=== PATIENT | male | born 1945 | race Caucasian/White ===

== ENCOUNTER → 2021-07-14 12:20 | Outpatient (CLI) | payer MEDICARE, SELFPAY | PROVIDERS: PCP Legal Medicine; Referring Provider Student in an Organized Health Care Education/Training Program; Visit Provider Student in an Organized Health Care Education/Training Program | DX: Z00.00 Encounter for general adult medical examination without abnormal findings (principal) | CPT/HCPCS: C9803 ==

== ENCOUNTER 2021-07-19 17:36 | Emergency (ER) | payer MEDICARE, SELFPAY ==
[2021-07-19] VITALS (7 sets, daily range): BP systolic 124–140; BP diastolic 70–78; PULSE 62–90; RESP 16–20; TEMP 36.1; O2SAT 89–96; BMI 19.6
--- NOTE | 2021-07-19 17:55 | EKG12_ITS ---
Test Reason : SOB Blood Pressure : / mmHG Vent. Rate : 067 BPM Atrial Rate : 067 BPM P-R Int : 170 ms QRS Dur : 084 ms QT Int : 384 ms P-R-T Axes : 062 -08 065 degrees QTc Int : 405 ms Normal sinus rhythm Normal ECG Confirmed by JEFF MARTINS, SHRAVAN ([id number]), online editor GORAN COLLINS ([id number]) on 07/21/2021 9:11:49 AM Referred By: BRITTNEE/ALLEY Confirmed By:SHRAVAN AGUILAR MD
--- NOTE | 2021-07-19 17:56 | EDS_ITS ---
HPI History of Present Illness Chief Complaint: Shortness of Breath Detail of Chief Complaint: Shortness of breath with low pulse ox Informant: patient and family Associated Symptoms cough Narrative Narrative: Patient presents to the emergency department chief complaint of shortness of breath and low pulse ox today. Patient tested positive for COVID- 19 5 days ago. 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 He has been getting radiation treatments to his brain. Patient first developed symptoms of Covid 8 days ago. Patient's daughter states that his oxygen levels at home have been as low as 80% on room air. Patient denies any chest pain. He does have some generalized weakness. Patient has not had a fever recently. He does have an occasional cough. [facility] Medical History (Updated 07/19/21 @ 19:[address] Chon Vyas DO) Brain metastasis Prostate cancer Home Medications dexamethasone 2 mg tablet 2 mg PO BID 07/04/21 [History Last Taken Unknown] metformin 500 mg tablet 500 mg PO BID 07/04/21 [History Last Taken Unknown] tamsulosin 0.4 mg capsule 0.4 mg PO DAILY 07/04/21 [History Last Taken Unknown] memantine 5 mg tablet 5 mg PO BID #105 tab 07/09/21 [Rx Last Taken Unknown] dexamethasone 6 mg PO DAILY #7 tab 07/19/21 [Rx Last Taken Unknown] Allergy/AdvReac Type Severity Reaction Status Date / Time isopropyl alcohol Allergy Mild Other Verified 07/19/21 17:40 Family History Mother Breast cancer Father Cancer lymphoma Surgical History Hx of tonsillectomy Social History (Updated 07/04/21 @ 10:33 by Bonnie Pritchett RN) adopted: No household members: spouse current occupational status: retired Smoking Status: Never smoker alcohol intake: never substance use type: does not use ROS ROS ED Constitutional Constitutional ED: Reports systems reviewed and no addt'l complaints, except as documented; Denies body ache(s), change in weight or chills Eyes Eyes: Denies acute decrease in peripheral vision, change in vision, double vision or loss of vision ENT ENT ED: Reports none; Denies ear pain, lip swelling, loss taste/smell, neck pain, otalgia or sore throat Cardiovascular Cardiovascular: Reports none; Denies abdominal pain, chest pain with activity, leg edema, lightheadedness, palpitations, rapid heart rate or syncope Respiratory/Chest Respiratory/Chest: Reports none, cough and dyspnea; Denies change in mental status, dry cough, hemoptysis, shortness of breath at rest or shortness of b reath with exertion Gastrointestinal Gastrointestinal: Reports none; Denies abdominal pain, change in stool character, diarrhea, hematemesis, hematochezia, melena, rectal bleeding or vomiting Genitourinary Genitourinary ED: Reports none; Denies abdominal discomfort, anuria, dysuria, genital pain or polyuria Musculoskeletal Musculoskeletal: Reports none; Denies arthralgias, back pain, difficulty walking, extremity pain, muscle weakness or myalgias Integumentary Reports none; Denies abscess or rash Neurologic Neurologic: Reports none and weakness; Denies abnormal gait, confusion, focal weakness, frequent falls, headache(s), loss of vision, numbness, paresthesias, radicular pain or vertigo Psychiatric Psychiatric: Reports systems reviewed and no addt'l complaints, except as documented and none; Denies behavioral changes, confusion, difficulty concentrating, hallucinations, suicidal ideation, tactile hallucinations or visual hallucinations Endocrine Endocrinology: Denies none, cold intolerance, excessive sweating, fatigue or heat intolerance Hematologic/Lymphatic Hematologic/Lymphatic: Reports none; Denies anemia, easy bleeding or easy bruising Allergic/Immunologic Allergic/Immunologic ED: Denies as per HPI, none, lip swelling, mouth swelling, throat swelling, tongue swelling or hives EXAM Physical Exam Const Vital Signs: 07/19/21 17:37 07/19/21 17:49 07/19/21 18:40 Temperature 97.0 F L Temperature Source Temporal Pulse Rate 81 76 Respiratory Rate 16 Respiratory Effort Non-Labored Short of Breath Respiratory Depth Normal Blood Pressure 124/70 H 126/73 H Blood Pressure Mean 88 90 Pulse Ox 93 92 89 Oxygen Delivery Method Room Air Room Air Room Air Oxygen Flow Rate (L/min) 07/19/21 18:42 07/19/21 19:56 07/19/21 20:26 Temperature 97.0 F L Temperature Source Temporal Pulse Rate 62 90 Respiratory Rate 20 H Respiratory Effort Respiratory Depth Blood Pressure 127/76 H 140/78 H Blood Pressure Mean 93 98 Pulse Ox 93 96 Oxygen Delivery Method Nasal Cannula Nasal Cannula Oxygen Flow Rate (L/min) 2 2 Positive well nourished and well developed General Appearance ED: well developed and NAD HEENT Reports TM's clear and moist mucous membranes normocephalic and atraumatic; Negative for trauma or tenderness Tympanic Membrane ED: Yes TM's clear Eyes PERRL and EOMs intact bilaterally General Eye ED: Negative for pale conjunctiva or scleral icterus Neck no lymphadenopathy, supple and no JVD General: Negative for tenderness Chest Wall inspection of chest normal and palpation of chest normal Chest: Negative for tenderness Resp normal respiratory effort and clear to auscultation bilaterally Effort and Inspection: Negative for respiratory distress or pain with movement Auscultation: Negative for rhonchi, wheezes or diminished lung sounds Cardio regular rate, regular rhythm, S1 normal heart sound, S2 normal heart sound and no murmurs Peripheral Pulses: pulses 2+ throughout GI normal to inspection, nondistended, normoactive bowel sounds, soft to palpation, non-tender, non-distended and no masses Back/Spine no CVA tenderness and no thoracic nor lumbar tenderness Extremity normal to inspection General Extremety ED: Negative for edema General Extremity: Negative for edema Neuro oriented x3, CN's II-XII intact bilaterally, no sensory deficits noted and gait normal Sensorium / Orientation: awake, alert, oriented to person, oriented to place and oriented to time Motor Exam: strength 5/5 throughout and strength abnormal Psych mental status grossly normal Skin no rashes or lesions noted and no wounds MDM MDM MDM Narrative Medical decision making narrative: IV line established on arrival. With ambulation patient oxygen dropped to 85%. Patient placed on 2 L nasal cannula O2. D-dimer was elevated therefore CT of the chest was ordered and results will be pending. Patient was seen by hospitalist who stated that patient wants to go home on oxygen and does not want to be admitted at this time. Patient already on Decadron at home and he is to continue with that. Patient will be set up for outpatient oxygen. Patient advised to return if worsening shortness of breath or conditions worsen anyway. Lab Data Attestation: I reviewed the patient's lab results. Labs: Laboratory Results - last 24 hr 07/19/21 07/19/21 07/19/21 18:42 18:42 18:42 WBC 7.0 RBC 3.71 L Hgb 11.9 L Hct 35.6 L MCV 96.0 H MCH 32.1 H MCHC 33.4 RDW Std Deviation 48.8 H RDW Coeff of Kendra 13.9 Plt Count 144 L MPV 9.2 Immature Gran % (Auto) 1.400 H Neut % (Auto) 93.6 H Lymph % (Auto) 3.[address] [place] % (Auto) 1.7 Eos % (Auto) 0.0 Baso % (Auto) 0.1 Absolute Neuts (auto) 6.5 Absolute Lymphs (auto) 0.22 L Nucleated RBC % 0 Differential Comment SCANNED D-Dimer Quant (PE/DVT) 1.28 H* Sodium 133 L Potassium 4.1 Chloride 101 Carbon Dioxide 23.0 Anion Gap 9 BUN 26 H Creatinine 0.70 Estim Creat Clear Calc 60.29 Est GFR (MDRD) Af Amer 141 Est GFR (MDRD) Non-Af 117 BUN/Creatinine Ratio 37.0 H Glucose 184 H Lactic Acid Calcium 8.4 L Troponin I High Sens 4 07/19/21 18:47 WBC RBC Hgb Hct MCV MCH MCHC RDW Std Deviation RDW Coeff of Kendra Plt Count MPV Immature Gran % (Auto) Neut % (Auto) Lymph % (Auto) [place] % (Auto) Eos % (Auto) Baso % (Auto) Absolute Neuts (auto) Absolute Lymphs (auto) Nucleated RBC % Differential Comment D-Dimer Quant (PE/DVT) Sodium Potassium Chloride Carbon Dioxide Anion Gap BUN Creatinine Estim Creat Clear Calc Est GFR (MDRD) Af Amer Est GFR (MDRD) Non-Af BUN/Creatinine Ratio Glucose Lactic Acid 2.5 H* Calcium Troponin I High Sens Radiography Chest X-Ray - ED: 1 View Diagnostic Testing: Clinical Impression(s) from Imaging Studies Chest X-Ray 07/19/21 18:55 IMPRESSION: Probable scarring of the right lateral lung. Possible early infiltrate/pneumonia in the right lung base. Electronically Signed: Robert Mcgill MD (Brooks) at 19:13 EST , Service support , Chest CTA 07/19/21 19:12 IMPRESSION: 1. No central or segmental pulmonary embolism. 2. Multilobar interstitial and groundglass opacities along the periphery with features commonly reported with COVID pneumonia. Electronically Signed: Robert Mcgill MD (Brooks) at 20:10 EST , Service support , One view chest x-ray obtained interpreted by myself as scarring of the right lung otherwise no acute disease process. Radiology in agreement although they thought there might be possible early infiltrate/pneumonia in the right lung base. EKG Initial EKG: Attestation: I personally reviewed and interpreted this EKG as follows: Comments: Sinus rhythm with a ventricular rate of 67 bpm with no acute ST segment changes. Discharge Plan Triage Chief Complaint: Shortness of Breath ED Provider: Chon Vyas Dx/Rx/DC Orders Clinical Impression: COVID-19, Hypoxemia Instructions: ED Dyspnea, Caring for Someone Who Has COVID-19 Prescriptions: New dexamethasone 6 mg tablet 6 mg PO DAILY Qty: 7 RF: 0 No Action metformin 500 mg tablet 500 mg PO BID RF: 0 tamsulosin [Flomax] 0.4 mg capsule 0.4 mg PO DAILY RF: 0 dexamethasone 2 mg tablet 2 mg PO BID RF: 0 memantine 5 mg tablet 5 mg PO BID Qty: 105 RF: 4 Primary Care Provider: Martell Klein Referrals: Martell Klein MD [Primary Care Provider] - Disposition Disposition: Home, Self Care
[2021-07-19] MEDS: dexAMETHasone 4 MG Tablet 6 MG PO (18:40)
[2021-07-19] MEDS: 0.9% Normal Saline 1,000 ML 150 ML IV (18:50)
[2021-07-19 18:54] LABS: Absolute Lymphocyte Count 0.22 X10^3/uL (0.83-4.51); Absolute Neutrophil Count 6.5 X10^3/uL (2.0-7.7); Basophil# 0.01 X10^3/uL; Basophil% 0.1 % (0-1); Hematocrit 35.6 % (40-54); Hemoglobin 11.9 g/dL (13.0-16.5); Lymphocyte # 0.22 X10^3/ul (0.83-4.51); Lymphocyte % 3.2 % (19-41); Mean Corp Hgb Conc 33.4 g/dL (32-36); Mean Corpuscular Hgb 32.1 pg (27.0-32.0); Mean Platelet Vol. 9.2 fl (6.2-12.0); Monocyte# 0.12 X10^3/uL; Monocyte% 1.7 % (0-10); NRBC Flagged by Analyzer 0 % (0-5); Neutrophil % 93.6 % (47-70); POSITIVE DIFFERENTIAL YES; Platelet Count 144 K/mm3 (150-450); RBC Distribution Width CV 13.9 % (11.6-14.6); RBC Distribution Width SD 48.8 fl (35.1-43.9); Red Blood Count 3.71 M/mm3 (4.6-6.2)
--- NOTE | 2021-07-19 18:55 | RAD_ITS ---
STUDY: X-RAY CHEST REASON FOR EXAM: Male, 75 years old. dyspnea TECHNIQUE: AP COMPARISON: PET scan 07/08/2021 FINDINGS: Right chest port is stable. The lungs are hyperexpanded. Linear dominant opacity along the lateral right lung with amorphous opacity in the right lung base. There is no demonstrated pleural abnormality. Normal size heart. Normal mediastinum and bienvenido. Normal visualized pulmonary arteries. There is atherosclerotic tortuosity of the aortic arch and descending thoracic aorta. There is demineralization of the osseous structures. Normal visualized ribs, clavicles, and shoulders. There is no demonstrated abnormality of the visualized soft tissue structures of the upper abdomen. RAD/Chest 1 View (Portable) IMPRESSION: Probable scarring of the right lateral lung. Possible early infiltrate/pneumonia in the right lung base. Electronically Signed: Robert Mgcill MD (Brooks) at 19:13 EST , Service support ,
[2021-07-19 18:58] LABS: Differential Indicated SCAN CRITERIA MET
[2021-07-19 19:11] LABS: D-Dimer Quantitative (DVT/PE) 1.28 FEU/ug/m (0.27-0.49)
--- NOTE | 2021-07-19 19:12 | CT_ITS ---
STUDY: CTA CHEST REASON FOR EXAM: Male, 75 years old. Shortness of breath increasing with exertion RADIATION DOSAGE (If Supplied By Facility): CTDIvol = ( 6.46 ) mGy, DLP = ( 212.42 ) mGycm TECHNIQUE: The examination was performed with the intravenous administration of IV 75mL Isovue-370. Post-processing of the angiographic images was performed, with multiplanar reformation and 3D reconstruction. Individualized dose optimization techniques were used for this CT. COMPARISON: None. FINDINGS: Normal enhancement of the main pulmonary artery and right and left pulmonary arteries. Normal enhancement of the bilateral peripheral pulmonary arteries. There is no demonstrated pulmonary embolism. Normal thoracic aorta and visualized great vessels. There is no demonstrated aortic dissection. Normal heart and pericardium. Normal mediastinum. Normal hilar regions. Normal visualized trachea and bronchi. The lungs are hyper expanded, with flattening of the hemidiaphragms. There are central emphysematous blebs in the bilateral lungs. Multilobar interstitial and groundglass opacities along the periphery with features commonly reported with COVID pneumonia. Normal pleura. Normal chest wall structures. There are degenerative changes of thoracic spine. Peripheral enhancing lesions of the liver likely represent hemangiomata. Probable simple cyst of the left hepatic lobe. No required imaging follow-up needed given high likelihood of benign nature. Granulomatous calcifications of the spleen. Multiple punctate calculi of the left kidney without sara hydronephrosis, although some parapelvic cysts are seen simulating hydronephrosis. Gallstones are noted. CT/CTA Chest W/WO Contrast IMPRESSION: 1. No central or segmental pulmonary embolism. 2. Multilobar interstitial and groundglass opacities along the periphery with features commonly reported with COVID pneumonia. Electronically Signed: Robert Mcgill MD ([place]) at 20:10 EST , Service support ,
[2021-07-19 19:18] LABS: Differential Comment SCANNED
[2021-07-19 19:30] LABS: Anion Gap 9 (5-15); BUN 26 mg/dL (7-18); Calcium,Total 8.4 mg/dL (8.5-10.1); Chloride 101 mmol/L (98-107); EST Glomerular Filtration Rate 117 mL/min (>60); Est Glom Filt Rate - Afr Amer 141 mL/min (>60); Estimated Creatinine Clearance 60.29 ml/min; Glucose 184 mg/dL (74-106); Potassium 4.1 mmol/L (3.5-5.1); Sodium Level 133 mmol/L (136-145); Troponin-I HS 4 pg/mL (3.0-78.0)
[2021-07-19 19:52] LABS: Lactic Acid 2.5 mmol/L (0.4-1.9)
--- NOTE | 2021-07-19 20:40 | CM.ED ---
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 VERO confirmed with MD that patient needs 2L of oxygen at discharge. VERO called [employer] and spoke to Evelina and made referral. VERO faxed referral to [facility]. VERO received call from [employer] rep, who indicated he will call the patient's sister in law, who patient is living with while receiving cancer treatments. VERO spoke to patient's sister in law, Jacoby Chavez, who stated patient is in [place] staying with her for undetermined amount of time at least a couple more weeks. Patient is receiving radiation from [facility] and has 2 more treatment to go. VERO updated DAIN that [employer] will call her to schedule time to come to the house to set up home oxygen. DAIN voiced understanding. Patient was discharged home to sister in law. [email or web address] email sent. VERO received confirmation email from [employer] Plan: Home with Home oxygen Pricilla CHAVES
[2021-07-19 22:12] LABS: Reflex Lactate? N
--- NOTE | 2021-07-20 22:34 | ED.RN ---
Preliminary blood culture result was gram stain positive cocci on 1 bottle drawn from his port. Dr. Boswell aware and stated it's probably skin staph, wait for final result.
--- NOTE | 2021-07-21 12:08 | CASEMGMT ---
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 Contacted pt's [id number] Tere who pt is staying with. She reports pt to be improving and that he was able to walk short distances yesterday without his PO dropping. Tere noted pt to be scheduled at the end of the day today for radiation tx and inquired as to if this was still ok. This RN CM attempted to contact radiation tx and voicemail message left requesting a return call to discuss and follow-up with [id number]. Tere denied any other questions or concerns. Anahi Vivar RN CM
== END 2021-07-19 21:11 | disposition home or self-care (01) ==
PROVIDERS: Emergency Provider Emergency Medicine; PCP Legal Medicine
DX: U07.1 COVID-19 (principal); R09.02 Hypoxemia; C61 Malignant neoplasm of prostate; C79.31 Secondary malignant neoplasm of brain; Z79.84 Long term (current) use of oral hypoglycemic drugs; Z79.52 Long term (current) use of systemic steroids; Z79.899 Other long term (current) drug therapy
CPT/HCPCS: 36591; 71045; 71275; 80048; 83605; 84484; 85025; 85379; 87040; 87149; 87186; 93005; 99285; J7030; Q9967; A4216

== ENCOUNTER 2021-07-23 15:03 | Emergency (ER) | payer OTHER, SELFPAY ==
[2021-07-23 15:05] VITALS: BP 192/77; PULSE 76; RESP 17; TEMP 37.3; O2SAT 94; BMI 19.6
--- NOTE | 2021-07-23 15:41 | CT_ITS ---
HISTORY: seizure w/ brain mets TECHNIQUE: Multiple axial images were obtained of the brain without intravenous contrast. A radiation dose optimization technique was used for this scan. IV Contrast dosage and agent: None. COMPARISON: PET/CT 07/08/21 FINDINGS: # of images incl. paperwork: 251 PARANASAL SINUSES AND MASTOID AIR CELLS: Maxillary and sphenoid sinusitis with sphenoid fluid level. INTRACRANIAL HEMORRHAGE: None. BRAIN PARENCHYMA: No CT evidence of stroke. High attenuation foci at the terrell-white interface at the right frontal lobe and right thalamus at the level of the frontal horns, largest 6 mm. These lesions are visible on the CT portion of the preceding PET/CT examination. Additional smaller foci in the high right frontal and left parietal convexity right external capsule. There is preservation of the terrell/white matter interface. Posterior fossa structures are unremarkable. There is hypoattenuation of the periventricular white matter. Chronic involutional changes are noted. CSF SPACES: Appropriate for age. There is no hydrocephalus. MASS EFFECT: None. CALVARIUM: No acute fracture. CT/Brain/Head without Contrast IMPRESSION: Findings highly suspicious for intracranial metastasis with the largest focus in the right frontal lobe at the terrell-white junction. Chronic involutional and white matter changes. Possible acute sphenoid sinusitis. Individualized dose optimization techniques were used for this CT. at 1639 Reported and signed by: Rodriguez Soriano MD Electronically Signed: Rodriguez Soriano MD at 16:38 EST Tel , Service support ,
--- NOTE | 2021-07-23 15:46 | EDS_ITS ---
HPI History of Present Illness Chief Complaint: Seizure Informant: patient and family Onset/Context/Timing Onset: Today and Hours Context: Sudden Onset Timing: Intermittent Current Severity: Gone Maximum Severity: Moderate Narrative Narrative: 75-year-old male with known history of prostate CA with bone, liver and brain mets. He underwent chemotherapy I believe in the summer. He is also done recently and finished his 10 whole brain radiation treatments I think that finished yesterday. Today he had what the family felt may have been a seizure. He has never had one before. He denies any recent illness. No fall or head trauma. Today was talking to family members his eyes rolled up into his head he they were fixed to look into the left. He was unresponsive his body got stiff a look like he was going to fall they grabbed him and lowered him to the couch. They said this lasted 30 to 60 seconds and when it ended he was completely back to his baseline. He did wake up confused need any believe it happened. Currently denies any symptoms. Of note the patient was diagnosed with Covid on July 18 his symptoms started on the . He denies any recent illness. Prior similar symptoms: No Recent Illness/Hospitalization: No PFSH [facility] Medical History Brain metastasis Prostate cancer Home Medications dexamethasone 2 mg tablet 2 mg PO BID 07/04/21 [History Last Taken Unknown] metformin 500 mg tablet 500 mg PO BID 07/04/21 [History Last Taken Unknown] tamsulosin 0.4 mg capsule 0.4 mg PO DAILY 07/04/21 [History Last Taken Unknown] memantine 5 mg tablet 5 mg PO BID #105 tab 07/09/21 [Rx Last Taken Unknown] dexamethasone 6 mg PO DAILY #7 tab 07/19/21 [Rx Last Taken Unknown] Allergy/AdvReac Type Severity Reaction Status Date / Time No Known Allergies Allergy Verified 07/23/21 15:04 Family History Mother Breast cancer Father Cancer lymphoma Surgical History Hx of tonsillectomy Social History adopted: No household members: spouse current occupational status: retired Smoking Status: Never smoker alcohol intake: never substance use type: does not use ROS ROS ED ROS Narrative Denies recent illness. Review of Systems ROS Unobtainable: Denies due to encephalopathy Constitutional Constitutional ED: Denies chills or fever(s) Eyes Eyes: Denies change in vision ENT ENT ED: Denies ear pain or sore throat Cardiovascular Cardiovascular: Denies chest pain Respiratory/Chest Respiratory/Chest: Denies cough or dyspnea Gastrointestinal Gastrointestinal: Denies abdominal pain, diarrhea, nausea or vomiting Genitourinary Genitourinary ED: Denies dysuria or hematuria Musculoskeletal Musculoskeletal: Denies myalgias Integumentary Denies rash Neurologic Neurologic: Denies headache(s) Psychiatric Psychiatric: Denies depression Endocrine Endocrinology: Denies polyuria Allergic/Immunologic Allergic/Immunologic ED: Denies urticaria EXAM Physical Exam Narrative Exam Narrative: 75-year-old male no acute distress vital signs stable afebrile. Pulse ox 94% on 2 L has been on 2 L since he was diagnosed with Covid. Currently is not hypoxic on oxygen. Temperature 99.1 H EENT exam unremarkable atraumatic.. No facial droop. Neck nontender no lymphadenopathy. Lungs clear oxygen. Heart regular rate and rhythm no murmur. Abdomen soft nontender. Normal bowel sounds no peritoneal signs. Moving all 4 extremities. 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 Normal range of motion. Neurologically awake and alert. He does know the year and current holiday. Normal speech. Const Vital Signs: 07/23/21 15:05 Temperature 99.1 F Temperature Source Oral Pulse Rate 76 Respiratory Rate 17 Blood Pressure 192/77 H Blood Pressure Mean 115 Pulse Ox 94 Oxygen Delivery Method Room Air Oxygen Flow Rate (L/min) 2 Positive well nourished and well developed; Negative for obese, cachectic, contractures or unkempt General Appearance ED: well developed and NAD; Negative for unkempt, cachectic, contractures, cyanotic, diaphoretic or pallor Nutritional Appearance: Negative for cachectic or obese HEENT Reports moist mucous membranes Negative for trauma or tenderness Eyes PERRL and EOMs intact bilaterally General Eye ED: Negative for pale conjunctiva or scleral icterus Neck no lymphadenopathy, supple and no JVD General: Negative for tenderness Chest Wall inspection of chest normal and palpation of chest normal Resp normal respiratory effort and clear to auscultation bilaterally Effort and Inspection: Negative for pain with movement Auscultation: Negative for rales, rhonchi or wheezes Cardio regular rate, regular rhythm, S1 normal heart sound, S2 normal heart sound and no murmurs GI normal to inspection, nondistended, normoactive bowel sounds, non-tender, non- distended and no masses Inspection: Negative for abdominal distention Auscultation: normoactive bowel sounds Palpation: soft; Negative for tender, guarding or rebound tenderness present Back/Spine no CVA tenderness General Back: Negative for CVA tenderness Cervical Spine: Negative for cervical spine tenderness Thoracic Spine / Upper Back: Negative for thoracic spinal tenderness Extremity normal to inspection General Extremety ED: Negative for edema or tenderness General Extremity: Negative for edema Neuro oriented x3 and CN's II-XII intact bilaterally Sensorium / Orientation: alert; Negative for orientation impaired, lethargic or stuporous Motor Exam: strength 5/5 throughout Psych mental status grossly normal Appearance: Negative for unkempt Mood & Affect: Negative for depressed or tearful Skin no rashes or lesions noted and no wounds General Skin Exam: Negative for jaundice or pallor MDM MDM MDM Narrative Medical decision making narrative: 75-year-old male history of Covid and also prostate CA with brain mets. Reportedly may have had a seizure today. Has never had a seizure before. CT of his brain and labs are being obtained. I will try to speak to his radiation oncologist. Repeat exam at 5:35 PM patient is doing well. I discussed the test results with both he and his I believe [id number] in the room. He will be started on Keppra 500 mg twice a day first dose given tonight in the ER. And he will need outpatient follow-up with a neurologist. I will refer him to Dr. Narvaez at [facility] his radiation oncologist may or may not be able get him in also a somewhat high state as needed. Lab Data Attestation: I reviewed the patient's lab results. Lab results narrative: CBC shows white count 7.8. Hemoglobin 12.7. This is actually better than her most recent of 11.9. Hematocrit 37. Platelets of 192. Electrolytes sodium 134 gap is 7 BUN 25 creatinine 0.6. Liver enzymes are unremarkable. Labs: Laboratory Results - last 24 hr 07/23/21 07/23/21 16:00 16:00 WBC 7.8 RBC 3.90 L Hgb 12.7 L Hct 37.0 L MCV 94.9 H MCH 32.6 H MCHC 34.3 RDW Std Deviation 49.3 H RDW Coeff of Kendra 14.3 Plt Count 192 MPV 9.0 Immature Gran % (Auto) 3.100 H Neut % (Auto) 87.2 H Lymph % (Auto) 5.0 L [place] % (Auto) 4.0 Eos % (Auto) 0.4 Baso % (Auto) 0.3 Absolute Neuts (auto) 6.8 Absolute Lymphs (auto) 0.39 L Nucleated RBC % 0 Differential Comment SCANNED Sodium 134 L Potassium 4.3 Chloride 102 Carbon Dioxide 25.0 Anion Gap 7 BUN 25 H Creatinine 0.64 L Estim Creat Clear Calc 60.29 Est GFR (MDRD) Af Amer 156 Est GFR (MDRD) Non-Af 129 BUN/Creatinine Ratio 38.8 H Glucose 103 Calcium 8.8 Total Bilirubin 0.50 AST 35 ALT 50 Alkaline Phosphatase 96 Total Protein 6.8 Albumin 2.4 L Globulin 4.4 H Albumin/Globulin Ratio 0.5 L Radiography Diagnostic Testing: Clinical Impression(s) from Imaging Studies Brain CT 07/23/21 15:41 IMPRESSION: Findings highly suspicious for intracranial metastasis with the largest focus in the right frontal lobe at the terrell-white junction. Chronic involutional and white matter changes. Possible acute sphenoid sinusitis. Individualized dose optimization techniques were used for this CT. at 1639 Reported and signed by: Rodriguez Soriano MD Electronically Signed: Rodriguez Soriano MD at 16:38 EST Tel , Service support , Discharge Plan Triage Chief Complaint: Seizure ED Provider: Mendoza Horne Dx/Rx/DC Orders Prescriptions: No Action metformin 500 mg tablet 500 mg PO BID RF: 0 tamsulosin [Flomax] 0.4 mg capsule 0.4 mg PO DAILY RF: 0 dexamethasone 2 mg tablet 2 mg PO BID RF: 0 dexamethasone 6 mg tablet 6 mg PO DAILY Qty: 7 RF: 0 memantine 5 mg tablet 5 mg PO BID Qty: 105 RF: 4 Primary Care Provider: Martell Klein
[2021-07-23 16:16] LABS: Absolute Lymphocyte Count 0.39 X10^3/uL (0.83-4.51); Absolute Neutrophil Count 6.8 X10^3/uL (2.0-7.7); Basophil# 0.02 X10^3/uL; Basophil% 0.3 % (0-1); Eosinophil# 0.03 X10^3/uL; Eosinophils% 0.4 % (0-5); Hemoglobin 12.7 g/dL (13.0-16.5); Lymphocyte # 0.39 X10^3/ul (0.83-4.51); Mean Corp Hgb Conc 34.3 g/dL (32-36); Mean Corpuscular Hgb 32.6 pg (27.0-32.0); Mean Corpuscular Volume 94.9 fL (80-94); Monocyte# 0.31 X10^3/uL; NRBC Flagged by Analyzer 0 % (0-5); Neutrophil # 6.76 X10^3/uL (2.7-7.7); Neutrophil % 87.2 % (47-70); POSITIVE DIFFERENTIAL YES; Platelet Count 192 K/mm3 (150-450); RBC Distribution Width CV 14.3 % (11.6-14.6); RBC Distribution Width SD 49.3 fl (35.1-43.9); White Blood Count 7.8 K/mm3 (4.4-11.0)
[2021-07-23 16:29] LABS: Differential Indicated SCAN CRITERIA MET
[2021-07-23 16:35] LABS: ALB/GLOB Ratio 0.5 RATIO (0.9-2.4); AST(SGOT) 35 U/L (15-37); Alanine Aminotransfer ALT/SGPT 50 U/L (16-61); Albumin, Serum 2.4 g/dL (3.2-5.0); Alkaline Phosphatase 96 U/L (45-117); Anion Gap 7 (5-15); BUN 25 mg/dL (7-18); BUN/Creat Ratio 38.8 RATIO (10-20); Calcium,Total 8.8 mg/dL (8.5-10.1); Chloride 102 mmol/L (98-107); Creatinine, Serum 0.64 mg/dL (0.70-1.30); EST Glomerular Filtration Rate 129 mL/min (>60); Est Glom Filt Rate - Afr Amer 156 mL/min (>60); Estimated Creatinine Clearance 60.29 ml/min; Globulin 4.4 g/dL (2.2-4.2); Glucose 103 mg/dL (74-106); Potassium 4.3 mmol/L (3.5-5.1); Protein, Total 6.8 g/dL (6.4-8.2); Sodium Level 134 mmol/L (136-145)
[2021-07-23 16:52] LABS: Differential Comment SCANNED
[2021-07-23 17:48] VITALS: BP 123/73; PULSE 69; RESP 18; O2SAT 92
[2021-07-23] MEDS: levETIRAcetam 1,000 MG Tablet 1000 MG PO (18:06)
== END 2021-07-23 18:11 | disposition home or self-care (01) ==
PROVIDERS: Emergency Provider Emergency Medicine; PCP Legal Medicine
DX: R56.9 Unspecified convulsions (principal); C78.7 Secondary malignant neoplasm of liver and intrahepatic bile duct; C79.31 Secondary malignant neoplasm of brain; C79.51 Secondary malignant neoplasm of bone; Z92.21 Personal history of antineoplastic chemotherapy; Z86.16 Personal history of COVID-19; Z85.46 Personal history of malignant neoplasm of prostate; Z92.3 Personal history of irradiation; Z79.52 Long term (current) use of systemic steroids; Z79.84 Long term (current) use of oral hypoglycemic drugs
CPT/HCPCS: 36591; 70450; 80053; 85025; 99284; A4216

== ENCOUNTER 2021-07-26 11:06 | Inpatient (IN) | payer OTHER, SELFPAY ==
[2021-07-26 11:07] VITALS: BP 108/57; PULSE 76; RESP 18; TEMP 35.5; O2SAT 92; BMI 19.5
[2021-07-26 11:53] VITALS: BP 113/75; PULSE 67; RESP 18; O2SAT 93
--- NOTE | 2021-07-26 11:53 | RAD_ITS ---
STUDY: X-RAY CHEST REASON FOR EXAM: Male, 75 years old. Fever TECHNIQUE: 2 frontal images of the chest were obtained COMPARISON: 07/19/2021 FINDINGS: There are bilateral patchy opacities throughout the right lung and throughout the left lower lung. There is a right sided central venous catheter terminating within the expected region of the superior vena cava. Normal size heart. Normal mediastinum and bienvenido. Normal visualized pulmonary arteries. Normal visualized aortic arch and descending thoracic aorta. Normal visualized thoracic spine. Normal visualized ribs, clavicles, and shoulders. There is no demonstrated abnormality of the visualized soft tissue structures of the upper abdomen. RAD/Chest 1 View (Portable) IMPRESSION: Bilateral patchy opacities concerning for multifocal pneumonia. Electronically Signed: Janis Greenwood MD at 13:13 EST Tel , Service support ,
[2021-07-26 12:57] LABS: Absolute Lymphocyte Count 0.47 X10^3/uL (0.83-4.51); Absolute Neutrophil Count 5.7 X10^3/uL (2.0-7.7); Basophil# 0.01 X10^3/uL; Basophil% 0.2 % (0-1); Eosinophil# 0.03 X10^3/uL; Eosinophils% 0.5 % (0-5); Hematocrit 37.3 % (40-54); Hemoglobin 12.3 g/dL (13.0-16.5); Lymphocyte # 0.47 X10^3/ul (0.83-4.51); Lymphocyte % 7.1 % (19-41); Mean Corpuscular Hgb 31.9 pg (27.0-32.0); Mean Corpuscular Volume 96.9 fL (80-94); Mean Platelet Vol. 9.2 fl (6.2-12.0); Monocyte# 0.33 X10^3/uL; NRBC Flagged by Analyzer 0 % (0-5); Neutrophil # 5.69 X10^3/uL (2.7-7.7); Neutrophil % 85.5 % (47-70); POSITIVE DIFFERENTIAL YES; Platelet Count 159 K/mm3 (150-450); RBC Distribution Width CV 14.1 % (11.6-14.6); RBC Distribution Width SD 50.4 fl (35.1-43.9); Red Blood Count 3.85 M/mm3 (4.6-6.2); White Blood Count 6.6 K/mm3 (4.4-11.0)
[2021-07-26 12:58] LABS: Differential Indicated SCAN CRITERIA MET
--- NOTE | 2021-07-26 13:07 | EDS_ITS ---
HPI History of Present Illness Chief Complaint: Wound Informant: patient Onset/Context/Timing Onset: Today Narrative Narrative: Patient is a 75-year-old male with history of recent COVID-19 infection currently on 2 L of nasal cannula, metastatic prostate cancer to the brain currently on radiation therapy presenting with pain and swelling over his port site. It is over his right chest. He notes is been red for about a week and he had 2 infusions for nutrition and hydration through the [facility] on Wednesday and of this week. This morning when he woke up it was very swollen and tender. Denies any drainage. The port was placed through [facility] by Dr. Mcgregor. It was not placed recently. Patient receives radiation therapy here which is why he came to [facility] instead of [facility]. He denies any systemic symptoms such as fever or chills. [facility] Medical History Brain metastasis Prostate cancer Home Medications metformin 500 mg tablet 500 mg PO BID 07/04/21 [History Last Taken Unknown] tamsulosin 0.4 mg capsule 0.4 mg PO DAILY 07/04/21 [History Last Taken Unknown] memantine 5 mg tablet 5 mg PO BID #105 tab 07/09/21 [Rx Last Taken Unknown] dexamethasone 6 mg PO DAILY #7 tab 07/19/21 [Rx Last Taken Unknown] levetiracetam [Keppra XR] 1,000 mg PO DAILY 30 Days #60 tab 07/23/21 [Rx Last Taken Unknown] atorvastatin 40 mg PO QHS 07/26/21 [History Last Taken Unknown] Allergy/AdvReac Type Severity Reaction Status Date / Time No Known Allergies Allergy Verified 07/26/21 11:08 Family History Mother Breast cancer Father Cancer lymphoma Surgical History Hx of tonsillectomy Social History adopted: No household members: spouse current occupational status: retired Smoking Status: Never smoker alcohol intake: never substance use type: does not use ROS ROS ED Constitutional Constitutional ED: Denies chills or fever(s) Eyes Eyes: Denies change in vision ENT ENT ED: Denies ear pain or rhinorrhea Cardiovascular Cardiovascular: Denies chest pain or palpitations Respiratory/Chest Respiratory/Chest: Denies cough or dyspnea Gastrointestinal Gastrointestinal: Denies abdominal pain or vomiting Musculoskeletal Musculoskeletal: Denies arthralgias or myalgias Integumentary Reports abscess and rash Neurologic Neurologic: Denies headache(s) or weakness Psychiatric Psychiatric: Denies depression EXAM Physical Exam Const Vital Signs: 07/26/21 11:07 07/26/21 11:53 07/26/21 14:27 Temperature 96 F L 100.3 F H Temperature Source Temporal Temporal Pulse Rate 76 67 62 Respiratory Rate 18 18 26 H Blood Pressure 108/57 L 113/75 119/75 Blood Pressure Mean 74 87 89 Pulse Ox 92 93 94 Oxygen Delivery Method Nasal Cannula Nasal Cannula Nasal Cannula Oxygen Flow Rate (L/min) 2 2 2 Positive well developed and cachectic General Appearance ED: well developed, cachectic and NAD Nutritional Appearance: cachectic HEENT Reports moist mucous membranes Negative for tenderness Eyes PERRL and EOMs intact bilaterally Neck supple Chest Wall inspection of chest normal Resp normal respiratory effort Auscultation: diminished lung sounds Cardio regular rate, regular rhythm and no murmurs GI normal to inspection, nondistended, normoactive bowel sounds Extremity normal to inspection General Extremety ED: Negative for edema or tenderness General Extremity: Negative for edema Neuro oriented x3 Sensorium / Orientation: alert Motor Exam: general weakness Psych mental status grossly normal Skin Skin Narrative: Patient has 10 cm irregular area of erythema over his right anterior upper chest wall where his port is. He has a golf ball sized area of fluctuance over the port site as well. There is mild associated tenderness palpation. No crepitus appreciated. MDM MDM MDM Narrative Medical decision making narrative: Patient evaluated for 1 week of redness of her port site and 1 day of significant swelling over his port site. Differential is highly concerning for abscess/infected port. Spoke with Dr. Goodman, surgeon on-call, who recommended aspirating and likely removal of the port as well as IV antibiotics. The area started draining spontaneously purulent material. Culture sent. Blood cultures are sent. Will aspirate out the remaining purulence per recommendation of surgery. Patient start on broad- spectrum antibiotics, vancomycin and Zosyn. 15 cc of frankly purulent fluid is aspirated from the area over patient's port. Patient tolerated procedure well. Patient will be admitted medicine service. He is agreeable to splenic care. He does develop a low-grade temperature 100.3 at the ER and is given a dose of Tylenol. Lab Data Attestation: I reviewed the patient's lab results. Labs: Laboratory Results - last 24 hr 07/26/21 07/26/21 07/26/21 12:45 12:45 12:45 WBC 6.6 RBC 3.85 L Hgb 12.3 L Hct 37.3 L MCV 96.9 H MCH 31.9 MCHC 33.0 RDW Std Deviation 50.4 H RDW Coeff of Kendra 14.1 Plt Count 159 MPV 9.2 Immature Gran % (Auto) 1.700 H Neut % (Auto) 85.5 H Lymph % (Auto) 7.1 L [place] % (Auto) 5.0 Eos % (Auto) 0.5 Baso % (Auto) 0.2 Absolute Neuts (auto) 5.7 Absolute Lymphs (auto) 0.47 L Nucleated RBC % 0 PT Cancelled INR Cancelled APTT Cancelled Sodium 136 Potassium 3.8 Chloride 104 Carbon Dioxide 25.0 Anion Gap 7 BUN 20 H Creatinine 0.62 L Estim Creat Clear Calc 59.87 Est GFR (MDRD) Af Amer 164 Est GFR (MDRD) Non-Af 135 BUN/Creatinine Ratio 32.4 H Glucose 79 Lactic Acid Calcium 8.6 Total Bilirubin 0.70 AST 21 ALT 40 Alkaline Phosphatase 84 Total Protein 6.5 Albumin 2.3 L Globulin 4.2 Albumin/Globulin Ratio 0.5 L 07/26/21 07/26/21 12:45 13:23 WBC RBC Hgb Hct MCV MCH MCHC RDW Std Deviation RDW Coeff of Kendra Plt Count MPV Immature Gran % (Auto) Neut % (Auto) Lymph % (Auto) [place] % (Auto) Eos % (Auto) Baso % (Auto) Absolute Neuts (auto) Absolute Lymphs (auto) Nucleated RBC % PT 12.3 INR 1.0 APTT 23.9 L Sodium Potassium Chloride Carbon Dioxide Anion Gap BUN Creatinine Estim Creat Clear Calc Est GFR (MDRD) Af Amer Est GFR (MDRD) Non-Af BUN/Creatinine Ratio Glucose Lactic Acid 1.7 Calcium Total Bilirubin AST ALT Alkaline Phosphatase Total Protein Albumin Globulin Albumin/Globulin Ratio Radiography Chest X-Ray - ED: 1 View, Read by ED Physician, Read by Radiologist and - (Multifocal infiltrate. I suspect this is from his recent Covid infection and residual changes) Diagnostic Testing: Clinical Impression(s) from Imaging Studies Chest X-Ray 07/26/21 11:53 IMPRESSION: Bilateral patchy opacities concerning for multifocal pneumonia. Electronically Signed: Janis Greenwood MD at 13:13 EST Tel , Service support , Discharge Plan Dx/Rx/DC Orders Clinical Impression: Abscess of chest wall, Fever, Infected venous access port Disposition Disposition: Acute Care Hospital [facility]
[2021-07-26 13:13] LABS: ALB/GLOB Ratio 0.5 RATIO (0.9-2.4); AST(SGOT) 21 U/L (15-37); Alanine Aminotransfer ALT/SGPT 40 U/L (16-61); Albumin, Serum 2.3 g/dL (3.2-5.0); Alkaline Phosphatase 84 U/L (45-117); Anion Gap 7 (5-15); BUN 20 mg/dL (7-18); BUN/Creat Ratio 32.4 RATIO (10-20); Calcium,Total 8.6 mg/dL (8.5-10.1); Chloride 104 mmol/L (98-107); Creatinine, Serum 0.62 mg/dL (0.70-1.30); EST Glomerular Filtration Rate 135 mL/min (>60); Est Glom Filt Rate - Afr Amer 164 mL/min (>60); Estimated Creatinine Clearance 59.87 ml/min; Globulin 4.2 g/dL (2.2-4.2); Glucose 79 mg/dL (74-106); Potassium 3.8 mmol/L (3.5-5.1); Protein, Total 6.5 g/dL (6.4-8.2); Sodium Level 136 mmol/L (136-145)
[2021-07-26 13:28] LABS: Lactic Acid 1.7 mmol/L (0.4-1.9)
[2021-07-26 13:40] LABS: Partial Thromboplast Time 23.9 Seconds (24.1-36.2); Prothrombin Time (Protime)PT. 12.3 SECONDS (11.7-14.9)
[2021-07-26 14:27] VITALS: BP 119/75; PULSE 62; RESP 26; TEMP 37.9; O2SAT 94
--- NOTE | 2021-07-26 14:40 | ED.RN ---
LEFT MESSAGE WITH J CARLOS LEONARD THAT PT NEEDS ADMISSION
[2021-07-26] MEDS: Vancomycin IV 1,000 MG/200 ML BAG 200 MG IV (14:47)
[2021-07-26] MEDS: Lidocaine 1% /Epi 1:100 (20ml) 20 ML Vial INFILT (14:47)
[2021-07-26 14:53] VITALS: BP 119/75; PULSE 62; RESP 26; TEMP 37.9; O2SAT 94
--- NOTE | 2021-07-26 15:34 | PCM.HP.STD ---
HPI - General General Date of Admission: 07/26/21 HPI Narrative MILENA CHARLES, is a 75 M who presents swelling in his right anterior chest where his port is. Patient was reseen in the emergency room on the with a COVID-19 and patient went home. Patient tested positive COVID-19 on the and was sick 3 days prior on the . Patient denies any fever chills otherwise feels okay. Patient was noted to have an abscess at the right anterior chest which was aspirated for [address] Linton was notified and said that he will plan on taking the patient to the surgery and having his port removed on the . The emergency room, patient received vancomycin as well as pip/tazo. [facility] Medical History Brain metastasis Prostate cancer Home Medications metformin 500 mg tablet 500 mg PO BID 07/04/21 [History Last Taken Unknown] tamsulosin 0.4 mg capsule 0.4 mg PO DAILY 07/04/21 [History Last Taken Unknown] memantine 5 mg tablet 5 mg PO BID #105 tab 07/09/21 [Rx Last Taken Unknown] dexamethasone 6 mg PO DAILY #7 tab 07/19/21 [Rx Last Taken Unknown] levetiracetam [Keppra XR] 1,000 mg PO DAILY 30 Days #60 tab 07/23/21 [Rx Last Taken Unknown] atorvastatin 40 mg PO QHS 07/26/21 [History Last Taken Unknown] Allergy/AdvReac Type Severity Reaction Status Date / Time No Known Allergies Allergy Verified 07/26/21 11:08 Family History Mother Breast cancer Father Cancer lymphoma Surgical History Hx of tonsillectomy Social History adopted: No household members: spouse current occupational status: retired Smoking Status: Never smoker alcohol intake: never substance use type: does not use ROS ROS Narrative All review of systems were negative except as mentioned above in the history of present illness and the other review of systems. Vital Signs Vital Signs Vital Signs: 07/26/21 11:07 07/26/21 11:53 07/26/21 14:27 Temperature 35.5 C L 37.9 C H Temperature Source Temporal Temporal Pulse Rate 76 67 62 Respiratory Rate 18 18 26 H Blood Pressure 108/57 L 113/75 119/75 Blood Pressure Mean 74 87 89 Pulse Ox 92 93 94 Oxygen Delivery Method Nasal Cannula Nasal Cannula Nasal Cannula Oxygen Flow Rate (L/min) 2 2 2 07/26/21 14:53 Temperature 37.9 C H Temperature Source Temporal Pulse Rate 62 Respiratory Rate 26 H Blood Pressure 119/75 Blood Pressure Mean 89 Pulse Ox 94 Oxygen Delivery Method Nasal Cannula Oxygen Flow Rate (L/min) 2 Weight Weight: 65.317 kg Body Mass Index (BMI) 19.5 Physical Exam Const alert General Appearance: cooperative HEENT normocephalic Resp normal respiratory effort, no retractions, no use of accessory muscles and clear to auscultation bilaterally Cardio regular rate, regular rhythm, S1 normal heart sound and S2 normal heart sound GI normal to inspection, nondistended, normoactive bowel sounds, soft to palpation, non-tender and non-distended Extremity normal to inspection and full ROM Skin Skin Narrative: Fluctuance at the right upper anterior chest at the port site. It is an internal port. Neuro Sensorium / Orientation: awake and alert Results Lab / Micro Data Attestation: I reviewed the patient's lab results. Result Diagrams: 07/26/21 12:45 07/26/21 12:45 Labs: Laboratory Results - last 24 hr 07/26/21 12:45: WBC 6.6, RBC 3.85 L, Hgb 12.3 L, Hct 37.3 L, MCV 96.9 H, MCH 31.9, MCHC 33.0, RDW Std Deviation 50.4 H, RDW Coeff of Kendra 14.1, Plt Count 159, MPV 9.2, Immature Gran % (Auto) 1.700 H, Neut % (Auto) 85.5 H, Lymph % (Auto) 7.1 L, [place] % (Auto) 5.0, Eos % (Auto) 0.5, Baso % (Auto) 0.2, Absolute Neuts (auto) 5.7, Absolute Lymphs (auto) 0.47 L, Nucleated RBC % 0 07/26/21 12:45: PT Cancelled, INR Cancelled, APTT Cancelled 07/26/21 12:45: Sodium 136, Potassium 3.8, Chloride 104, Carbon Dioxide 25.0, Anion Gap 7, BUN 20 H, Creatinine 0.62 L, Estim Creat Clear Calc 59.87, Est GFR (MDRD) Af Amer 164, Est GFR (MDRD) Non-Af 135, BUN/Creatinine Ratio 32.4 H, Glucose 79, Calcium 8.6, Total Bilirubin 0.70, AST 21, ALT 40, Alkaline Phosphatase 84, Total Protein 6.5, Albumin 2.3 L, Globulin 4.2, Albumin/Globulin Ratio 0.5 L 07/26/21 12:45: Lactic Acid 1.7 07/26/21 13:23: PT 12.3, INR 1.0, APTT 23.9 L Radiology Impression Chest X-Ray 07/26/21 11:53 IMPRESSION: Bilateral patchy opacities concerning for multifocal pneumonia. Electronically Signed: Janis Greenwood MD at 13:13 EST Tel , Service support , Assessment & Plan Assessment/Plan (1) COVID-19: (2) Abscess of chest wall: PLAN: 1. Chest wall abscess Secondary port infection No mention of abscess on the CAT scan report though on the that was not the primary indication for the CAT scan. Of note, patient did have positive bacteremia for staph epidermidis that was pansensitive. Is likely the culprit organism of his abscess but repeat cultures performed in the emergency room blood cultures as well as from the aspirate. General surgery notified the plan is for the patient to go to surgery have his port removed on the . Continue with broad-spectrum antibiotics for now then de-escalate based on final culture results 2. COVID-19 Onset was the seventh, quarantine through the . Patient dexamethasone. Patient is unvaccinated. He stated that his oncologist told him not to get vaccinated. 3. Diabetes mellitus type 2 sliding scale insulin and monitor 4. Stage IV prostate cancer with brain metastasis Follow-up with medical and radiation oncology 5. CODE STATUS: Addressed with the patient. Patient wishes to be full code. Charges/Coding Visit Charges Inpatient E&M: 07490 Init Hosp L2
[2021-07-26 15:43] VITALS: BMI 19.6
[2021-07-26 16:00] VITALS: BP 112/65; PULSE 77; RESP 16; TEMP 36.9; O2SAT 93
--- NOTE | 2021-07-26 16:01 | PCM.RX.CS ---
Consult Pharmacy has been consulted to manage selected antiobiotic: Vancomycin Type of Consult: New start Suspected Infection: Skin/Soft tissue Labs: Sodium 136 mmol/L (136-145) 07/26/21 12:45 Potassium 3.8 mmol/L (3.5-5.1) 07/26/21 12:45 Chloride 104 mmol/L (98-107) 07/26/21 12:45 Carbon Dioxide 25.0 mmol/L (21.0-32.0) 07/26/21 12:45 Anion Gap 7 (5-15) 07/26/21 12:45 BUN 20 mg/dL (7-18) H 07/26/21 12:45 Creatinine 0.62 mg/dL (0.70-1.30) L 07/26/21 12:45 Est GFR (MDRD) Af Amer 164 mL/min (>60) 07/26/21 12:45 Est GFR (MDRD) Non-Af 135 mL/min (>60) 07/26/21 12:45 BUN/Creatinine Ratio 32.4 RATIO (10-20) H 07/26/21 12:45 Glucose 79 mg/dL (74-106) 07/26/21 12:45 Goal Trough: 15-20 mcg/mL Pharmacy Plan for Drug Dosing: NEW START IV VANCOMYCIN Consulting Physician: Dr. Carrasco Indication: Port Abscess/ SSTI Goal Trough: 15-20 SrCr: 0.62 CrCl: 60 mL/min Comments: Had 1g IV x1 dose in ED 07/22/21 @1447 Vancomycin Dose: Patient to be started on Vancomycin 750mg IV Q12hr. Of note; a loading dose of drug was ordered. In lieu of giving a supplemental dose, will start scheduled dosing 8hrs from initial ED dose, which would be 07/26/21 @2300 Pending Level: 07/27/21 @2230, prior to 4th total vancomycin dose per protocol Pharmacy Service will continue to monitor and adjust dosing as required.
[2021-07-26 16:20] LABS: Bedside Glucose 92 mg/dL (70-110)
[2021-07-26] MEDS: metFORMIN HCl 500 MG Tablet PO (16:22)
[2021-07-26 22:50] VITALS: BP 131/78; PULSE 74; RESP 18; TEMP 37; O2SAT 95
[2021-07-26] MEDS: levETIRAcetam 500 MG Tablet PO (22:57)
[2021-07-26] MEDS: Piperacil/Tazobactam 3.375 GM Q8 PREMIX IV (22:57)
[2021-07-26] MEDS: Atorvastatin Calcium 40 MG Tablet PO (22:57)
[2021-07-26] MEDS: 0.9% Saline Lock 10 ML Syringe IV (23:11)
[2021-07-26 23:26] LABS: Bedside Glucose 96 mg/dL (70-110)
[2021-07-27 04:22] VITALS: BP 100/53; PULSE 63; RESP 18; TEMP 36.2; O2SAT 97
[2021-07-27 06:00] LABS: Absolute Lymphocyte Count 0.43 X10^3/uL (0.83-4.51); Absolute Neutrophil Count 4.4 X10^3/uL (2.0-7.7); Basophil# 0.03 X10^3/uL; Basophil% 0.6 % (0-1); Eosinophil# 0.04 X10^3/uL; Eosinophils% 0.7 % (0-5); Hematocrit 35.6 % (40-54); Hemoglobin 11.7 g/dL (13.0-16.5); Lymphocyte # 0.43 X10^3/ul (0.83-4.51); Mean Corp Hgb Conc 32.9 g/dL (32-36); Mean Corpuscular Hgb 31.4 pg (27.0-32.0); Mean Corpuscular Volume 95.4 fL (80-94); Mean Platelet Vol. 8.8 fl (6.2-12.0); Monocyte% 7.4 % (0-10); NRBC Flagged by Analyzer 0 % (0-5); Neutrophil # 4.37 X10^3/uL (2.7-7.7); Neutrophil % 81.4 % (47-70); POSITIVE DIFFERENTIAL YES; Platelet Count 138 K/mm3 (150-450); RBC Distribution Width SD 48.8 fl (35.1-43.9); Red Blood Count 3.73 M/mm3 (4.6-6.2); White Blood Count 5.4 K/mm3 (4.4-11.0)
--- NOTE | 2021-07-27 06:00 | EKG12_ITS ---
Test Reason : PRE-OP Blood Pressure : / mmHG Vent. Rate : 080 BPM Atrial Rate : 048 BPM P-R Int : 184 ms QRS Dur : 084 ms QT Int : 370 ms P-R-T Axes : 053 -19 043 degrees QTc Int : 426 ms Marked sinus bradycardia with marked sinus arrhythmia with Premature supraventricular complexes with frequent Premature ventricular complexes Abnormal ECG When compared with ECG of 19-JUL-2021 18:23, Premature ventricular complexes are now Present Premature supraventricular complexes are now Present Confirmed by GLORIA MARTINS, HECTOR ([id number]), book editor GORAN COLLINS ([id number]) on 07/29/2021 10:10:52 AM Referred By: BAUDILIO Confirmed By:HECTOR CASTRO MD
[2021-07-27 06:02] LABS: Differential Indicated SCAN CRITERIA MET
[2021-07-27 06:28] LABS: ALB/GLOB Ratio 0.5 RATIO (0.9-2.4); AST(SGOT) 25 U/L (15-37); Alanine Aminotransfer ALT/SGPT 35 U/L (16-61); Albumin, Serum 1.9 g/dL (3.2-5.0); Alkaline Phosphatase 75 U/L (45-117); Anion Gap 7 (5-15); BUN 18 mg/dL (7-18); BUN/Creat Ratio 33.1 RATIO (10-20); Calcium,Total 7.8 mg/dL (8.5-10.1); Chloride 102 mmol/L (98-107); Creatinine, Serum 0.54 mg/dL (0.70-1.30); EST Glomerular Filtration Rate 156 mL/min (>60); Est Glom Filt Rate - Afr Amer 189 mL/min (>60); Estimated Creatinine Clearance 60.29 ml/min; Globulin 3.8 g/dL (2.2-4.2); Glucose 86 mg/dL (74-106); Potassium 3.9 mmol/L (3.5-5.1); Protein, Total 5.7 g/dL (6.4-8.2); Sodium Level 133 mmol/L (136-145)
[2021-07-27] MEDS: Piperacil/Tazobactam 3.375 GM Q8 PREMIX IV ×3 (06:35→21:06)
[2021-07-27 06:46] LABS: Bedside Glucose 92 mg/dL (70-110)
[2021-07-27 06:47] LABS: Differential Comment SCANNED
[2021-07-27 07:43] VITALS: BP 104/71; PULSE 74; RESP 16; TEMP 36.5; O2SAT 97
[2021-07-27] MEDS: Lidocaine 1% (20 ml mdv) 20 ML Vial INFILT (07:47)
--- NOTE | 2021-07-27 08:02 | CON.PCM.SX_ITS ---
Assessment & Plan Assessment/Plan (1) Infected venous access port: QUALIFIERS: Encounter type: initial encounter Qualified Code(s): T80.219A - Unspecified infection due to central venous catheter, initial encounter PLAN: Patient has infected vascular chest port on the right. I discussed incision and drainage and removal of the chest for the patient in detail. I discussed the risks including bleeding and infection. I did remove the port at the bedside and there is copious purulent drainage. The incision was packed and I will order dressing changes twice a day. Once the culture results are back patient may be deescalated and discharged home on oral antibiotics and follow-up with me in the office. Hector Linton MD Pager: [facility] [address] [place] [address], [address] [place] [address] Office: HPI Consult Data Date of Consult: 07/27/21 HPI Narrative HPI Narrative: MILENA CHARLES, is a 75 M who presents with infection of port site. The patient reports that his port was accessed on . He is no longer undergoing chemotherapy. He currently has Covid. FORMERLY [facility], [facility] Medical History (Updated 07/27/21 @ 08:[address] Hector Linton MD) Brain metastasis On home oxygen therapy Prostate cancer Seizures Home Medications metformin 500 mg tablet 500 mg PO BID 07/04/21 [History Last Taken Unknown] tamsulosin 0.4 mg capsule 0.4 mg PO DAILY 07/04/21 [History Last Taken Unknown] memantine 5 mg tablet 5 mg PO BID #105 tab 07/09/21 [Rx Last Taken Unknown] dexamethasone 6 mg PO DAILY #7 tab 07/19/21 [Rx Last Taken Unknown] levetiracetam [Keppra XR] 1,000 mg PO DAILY 30 Days #60 tab 07/23/21 [Rx Last Taken Unknown] atorvastatin 40 mg PO QHS 07/26/21 [History Last Taken Unknown] Allergy/AdvReac Type Severity Reaction Status Date / Time No Known Allergies Allergy Verified 07/26/21 11:08 Family History Mother Breast cancer Father Cancer lymphoma Surgical History Hx of tonsillectomy Social History adopted: No household members: spouse current occupational status: retired Smoking Status: Never smoker alcohol intake: never substance use type: does not use ROS Constitutional Constitutional: Reports fatigue and fever(s); Denies anorexia ENT HEENT: Denies abnormal hearing Cardiovascular Cardiovascular: Denies chest pain Respiratory/Chest Respiratory/Chest: Denies cough or dyspnea Gastrointestinal Gastrointestinal: Denies abdominal pain Musculoskeletal Musculoskeletal: Denies abnormal gait Integumentary Integumentary: Denies jaundice Neurologic Neurologic: Denies abnormal gait Physical Exam Const alert and oriented x3 HEENT normocephalic Eyes PERRL Chest Chest Narrative: Patient has a large fluctuant area over the port site with redness and tenderness Resp normal respiratory effort Cardio Rate: regular rate Rhythm: regular rhythm Lab / Micro Data Result Diagrams: 07/27/21 05:34 07/27/21 05:34 Labs: Laboratory Results - last 24 hr 07/26/21 12:45: WBC 6.6, RBC 3.85 L, Hgb 12.3 L, Hct 37.3 L, MCV 96.9 H, MCH 31.9, MCHC 33.0, RDW Std Deviation 50.4 H, RDW Coeff of Kendra 14.1, Plt Count 159, MPV 9.2, Immature Gran % (Auto) 1.700 H, Neut % (Auto) 85.5 H, Lymph % (Auto) 7.1 L, [place] % (Auto) 5.0, Eos % (Auto) 0.5, Baso % (Auto) 0.2, Absolute Neuts (auto) 5.7, Absolute Lymphs (auto) 0.47 L, Nucleated RBC % 0 07/26/21 12:45: PT Cancelled, INR Cancelled, APTT Cancelled 07/26/21 12:45: Sodium 136, Potassium 3.8, Chloride 104, Carbon Dioxide 25.0, Anion Gap 7, BUN 20 H, Creatinine 0.62 L, Estim Creat Clear Calc 59.87, Est GFR (MDRD) Af Amer 164, Est GFR (MDRD) Non-Af 135, BUN/Creatinine Ratio 32.4 H, Glucose 79, Calcium 8.6, Total Bilirubin 0.70, AST 21, ALT 40, Alkaline Phosphatase 84, Total Protein 6.5, Albumin 2.3 L, Globulin 4.2, Albumin/Globulin Ratio 0.5 L 07/26/21 12:45: Lactic Acid 1.7 07/26/21 13:23: PT 12.3, INR 1.0, APTT 23.9 L 07/26/21 16:04: POC Glucose 92 07/26/21 22:53: POC Glucose 96 07/27/21 05:34: WBC 5.4, RBC 3.73 L, Hgb 11.7 L, Hct 35.6 L, MCV 95.4 H, MCH 31.4, MCHC 32.9, RDW Std Deviation 48.8 H, RDW Coeff of Kendra 14.0, Plt Count 138 L, MPV 8.8, Immature Gran % (Auto) 1.900 H, Neut % (Auto) 81.4 H, Lymph % (Auto) 8.0 L, [place] % (Auto) 7.4, Eos % (Auto) 0.7, Baso % (Auto) 0.6, Absolute Neuts (auto) 4.4, Absolute Lymphs (auto) 0.43 L, Nucleated RBC % 0, Differential Comment SCANNED 07/27/21 05:34: Sodium 133 L, Potassium 3.9, Chloride 102, Carbon Dioxide 24.0, Anion Gap 7, BUN 18, Creatinine 0.54 L, Estim Creat Clear Calc 60.29, Est GFR (MDRD) Af Amer 189, Est GFR (MDRD) Non-Af 156, BUN/Creatinine Ratio 33.1 H, Glucose 86, Calcium 7.8 L, Total Bilirubin 0.60, AST 25, ALT 35, Alkaline Phosphatase 75, Total Protein 5.7 L, Albumin 1.9 L, Globulin 3.8, Albumin/Globulin Ratio 0.5 L 07/27/21 06:38: POC Glucose 92 Radiology Impression Chest X-Ray 07/26/21 11:53 IMPRESSION: Bilateral patchy opacities concerning for multifocal pneumonia. Electronically Signed: Janis Greenwood MD at 13:13 EST Tel , Service support ,
--- NOTE | 2021-07-27 08:05 | PCM.OPRPT ---
Problems Associated Problem List Diagnoses (1) Infected venous access port: Report of Operation Date of Procedure: 07/27/21 Pre-Operative Diagnosis: Infected right chest port Post-Operative Diagnosis: Same Surgery/Procedure Performed:: Right chest port removal and incision and drainage of abscess Specimen's removed: Right chest port Description of Procedure: The patient's right chest was prepped and draped in usual sterile fashion. The prior incision was injected with local anesthetic. Scalpel was used to make an incision and copious amounts Purulent material were expressed. This was cultured yesterday in the emergency room so cultures were not performed.Next the port was easily removed with no bleeding. The cavity was irrigated and then packed with half-inch iodoform gauze. Dressing was applied. Patient tolerated the procedure well.
[2021-07-27] MEDS: levETIRAcetam 500 MG Tablet PO ×2 (08:30→21:02)
[2021-07-27] MEDS: dexAMETHasone 4 MG Tablet 6 MG PO (08:30)
[2021-07-27] MEDS: Tamsulosin HCl 0.4 MG Capsule PO (08:30)
[2021-07-27] MEDS: metFORMIN HCl 500 MG Tablet PO ×2 (08:30→17:16)
[2021-07-27] MEDS: Memantine Hydrochloride 10 MG Tablet PO ×2 (08:33→21:02)
[2021-07-27 08:41] LABS: Bedside Glucose 79 mg/dL (70-110)
[2021-07-27 10:02] LABS: Hemoglobin A1c 5.8 % (3.8-5.6)
--- NOTE | 2021-07-27 11:03 | PN.HOSP_ITS ---
Documented by User: Eugenio LEE 07/27/21 11:24 Subjective Subjective Patient is a 75-year-old male comfortably resting in bed, alert and orient x3. Patient denies development of any new symptoms overnight. Does not appear in acute distress. Objective Data Objective Data Vital Signs: Vital Signs Temp Pulse Resp BP Pulse Ox 97.7 F L 74 16 104/71 97 07/27/21 07:43 07/27/21 07:43 07/27/21 07:43 07/27/21 07:43 07/27/21 07:43 Oxygen Flow Rate (L/min) 2 Oxygen Delivery Method Nasal Cannula Weight: 145 lb Body Mass Index (BMI) 19.6 Intake & Output: Intake and Output for Last 24 Hours 07/25/21 07/26/21 07/27/21 23:59 23:59 23:59 Intake Total 562.5 / 562.5 565 / 565 Output Total 100 / 100 1000 / 1000 Balance 462.5 / 462.5 -435 / -435 Lab / Micro Data Result Diagrams: 07/27/21 05:34 07/27/21 05:34 Labs: Laboratory Results - last 24 hr 07/26/21 12:45: WBC 6.6, RBC 3.85 L, Hgb 12.3 L, Hct 37.3 L, MCV 96.9 H, MCH 31.9, MCHC 33.0, RDW Std Deviation 50.4 H, RDW Coeff of Kendra 14.1, Plt Count 159, MPV 9.2, Immature Gran % (Auto) 1.700 H, Neut % (Auto) 85.5 H, Lymph % (Auto) 7.1 L, [place] % (Auto) 5.0, Eos % (Auto) 0.5, Baso % (Auto) 0.2, Absolute Neuts (auto) 5.7, Absolute Lymphs (auto) 0.47 L, Nucleated RBC % 0 07/26/21 12:45: PT Cancelled, INR Cancelled, APTT Cancelled 07/26/21 12:45: Sodium 136, Potassium 3.8, Chloride 104, Carbon Dioxide 25.0, Anion Gap 7, BUN 20 H, Creatinine 0.62 L, Estim Creat Clear Calc 59.87, Est GFR (MDRD) Af Amer 164, Est GFR (MDRD) Non-Af 135, BUN/Creatinine Ratio 32.4 H, Glucose 79, Calcium 8.6, Total Bilirubin 0.70, AST 21, ALT 40, Alkaline Phosphatase 84, Total Protein 6.5, Albumin 2.3 L, Globulin 4.2, Albumin/Globulin Ratio 0.5 L 07/26/21 12:45: Lactic Acid 1.7 07/26/21 13:23: PT 12.3, INR 1.0, APTT 23.9 L 07/26/21 16:04: POC Glucose 92 07/26/21 22:53: POC Glucose 96 07/27/21 05:34: WBC 5.4, RBC 3.73 L, Hgb 11.7 L, Hct 35.6 L, MCV 95.4 H, MCH 31.4, MCHC 32.9, RDW Std Deviation 48.8 H, RDW Coeff of Kendra 14.0, Plt Count 138 L, MPV 8.8, Immature Gran % (Auto) 1.900 H, Neut % (Auto) 81.4 H, Lymph % (Auto) 8.0 L, [place] % (Auto) 7.4, Eos % (Auto) 0.7, Baso % (Auto) 0.6, Absolute Neuts (auto) 4.4, Absolute Lymphs (auto) 0.43 L, Nucleated RBC % 0, Differential Comment SCANNED 07/27/21 05:34: Sodium 133 L, Potassium 3.9, Chloride 102, Carbon Dioxide 24.0, Anion Gap 7, BUN 18, Creatinine 0.54 L, Estim Creat Clear Calc 60.29, Est GFR (MDRD) Af Amer 189, Est GFR (MDRD) Non-Af 156, BUN/Creatinine Ratio 33.1 H, Glucose 86, Calcium 7.8 L, Total Bilirubin 0.60, AST 25, ALT 35, Alkaline Phosphatase 75, Total Protein 5.7 L, Albumin 1.9 L, Globulin 3.8, Albumin/Globulin Ratio 0.5 L 07/27/21 05:34: Hemoglobin A1c 5.8 H 07/27/21 06:38: POC Glucose 92 07/27/21 07:39: POC Glucose 79 Micro: Microbiology 07/26/21 13:23 Blood Culture (Wb) - Left Forearm Blood Culture - Preliminary Radiography Diagnostic Testing: Radiology Impression Chest X-Ray 07/26/21 11:53 IMPRESSION: Bilateral patchy opacities concerning for multifocal pneumonia. Electronically Signed: Janis Greenwood MD at 13:13 EST Tel , Service support , Physical Exam Const alert, oriented x3 and no apparent distress HEENT head/scalp atraumatic and moist oral mucous membranes Head and Scalp: normocephalic Eyes PERRL, EOMs intact bilaterally and conjunctivae normal Neck no lymphadenopathy, supple and no JVD Resp normal respiratory effort, no retractions, no use of accessory muscles and clear to auscultation bilaterally Cardio regular rate, regular rhythm, no murmurs and no JVD GI normal to inspection, nondistended, normoactive bowel sounds, soft to palpation and non-tender Extremity normal to inspection, full ROM and no clubbing, cyanosis or edema Skin Skin Narrative: Internal chest port from the right upper anterior portion of the chest has been appropriately removed and packed. Neuro CN's II-XII intact bilaterally Psych affect normal Assessment & Plan Assessment/Plan (1) Abscess of chest wall: (2) COVID-19: PLAN: Day 1 Discharge planning: Current plan is for patient to be discharged home when medically ready. 1) chest wall abscess with secondary port infection Chest port has been removed by general surgery and is appropriately packed. Wound cultures primarily grew staph aureus, currently awaiting sensitivities. Vital signs are stable and patient is afebrile. CBC does not demonstrate a leukocytosis. Blood cultures pending. Continue Zosyn and vancomycin and await sensitivities. 2) COVID-19 infection Patient is currently asymptomatic, onset was July 08, to remain on quarantine through 07/28/2021. Currently on dexamethasone. Admitting physician reports that patient is not vaccinated per advisement from oncologist. 3) DM2 Well-controlled, hemoglobin A1c is 5.8. Accu-Cheks with sliding scale insulin ordered, continue to monitor. 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 5) thrombocytopenia Currently 138, baseline appears between 150 and 200. Likely due to radiation treatments. Continue to monitor. DVT prophylaxis - Lovenox Patient seen by Eugenio Acosta PA-C, under the supervision of Dr. Carrasco. Documented by User: Dr. Nam Carrasco, 07/27/21 11:57 Subjective Subjective Feels well. Port removed this AM. Objective Data Lab / Micro Data Result Diagrams: 07/27/21 05:34 07/27/21 05:34 Physical Exam Const alert and no apparent distress Skin Skin Narrative: port site with some blood. Assessment & Plan Assessment/Plan (1) Abscess of chest wall: (2) Bacteremia: PLAN: Patient seen and examined independently. Data and vitals reviewed. I agree with the above note by the physician administrative sales assistant. 1. Chest wall abscess Secondary port infection Port removed 07/27 No mention of abscess on the CAT scan report though on the that was not the primary indication for the CAT scan. Of note, patient did have positive bacteremia for staph epidermidis that was pansensitive. Is likely the culprit organism of his abscess but repeat cultures performed in the emergency room blood cultures as well as from the aspirate. General surgery notified the plan is for the patient to go to surgery have his port removed on the . Continue with broad-spectrum antibiotics for now then de-escalate based on final culture results Aspirate growing out S. aureus ID consult 2. Bacteremia GPC in clusters repeat BCx today 3. COVID-19 Onset was the seventh, quarantine until the . Patient dexamethasone. Patient is unvaccinated. He stated that his oncologist told him not to get vaccinated. 4. Diabetes mellitus type 2 controlled sliding scale insulin and monitor 5. Stage IV prostate cancer with brain metastasis Follow-up with medical and radiation oncology 6. CODE STATUS: Addressed with the patient. Patient wishes to be full code. Charges/Coding Visit Charges Inpatient E&M: 24635 Subs Hosp L2
[2021-07-27 11:13] VITALS: BP 102/59; PULSE 50; RESP 16; TEMP 36.5; O2SAT 96
[2021-07-27 11:30] LABS: Bedside Glucose 105 mg/dL (70-110)
[2021-07-27 14:20] VITALS: BP 108/56; PULSE 50; RESP 16; TEMP 36.5; O2SAT 96
[2021-07-27 16:06] LABS: Bedside Glucose 198 mg/dL (70-110)
[2021-07-27 20:25] VITALS: BP 96/67; PULSE 77; RESP 18; TEMP 36.7; O2SAT 98
[2021-07-27] MEDS: Atorvastatin Calcium 40 MG Tablet PO (21:02)
[2021-07-27] MEDS: 0.9% Saline Lock 10 ML Syringe IV (21:08)
[2021-07-27 21:30] LABS: Bedside Glucose 199 mg/dL (70-110)
[2021-07-27 22:24] LABS: Vancomycin, Trough Level 5.4 ug/mL (5.0-15.0)
--- NOTE | 2021-07-27 22:45 | PCM.RX.CS ---
Consult Pharmacy has been consulted to manage selected antiobiotic: Vancomycin Type of Consult: Follow-up Suspected Infection: Skin/Soft tissue Prior Doses of Antibiotics Received/Current Regimen: Medications Vancomycin HCl 1,250 mg/ (Sodium Chloride) 275 mls @ 167 mls/hr IV Q12H SUSAN Vancomycin HCl 750 mg/ Sodium (Chloride) 265 mls @ 250 mls/hr IV Q12H SUSAN Stop: 07/27/21 23:45 Last Admin: 07/27/21 22:29 Dose: 250 mls/hr Labs: Sodium 133 mmol/L (136-145) L 07/27/21 05:34 Potassium 3.9 mmol/L (3.5-5.1) 07/27/21 05:34 Chloride 102 mmol/L (98-107) 07/27/21 05:34 Carbon Dioxide 24.0 mmol/L (21.0-32.0) 07/27/21 05:34 Anion Gap 7 (5-15) 07/27/21 05:34 BUN 18 mg/dL (7-18) 07/27/21 05:34 Creatinine 0.54 mg/dL (0.70-1.30) L 07/27/21 05:34 Est GFR (MDRD) Af Amer 189 mL/min (>60) 07/27/21 05:34 Est GFR (MDRD) Non-Af 156 mL/min (>60) 07/27/21 05:34 BUN/Creatinine Ratio 33.1 RATIO (10-20) H 07/27/21 05:34 Glucose 86 mg/dL (74-106) 07/27/21 05:34 Vancomycin Trough 5.4 ug/mL (5.0-15.0) 07/27/21 22:00 Microbiology: Microbiology 07/26/21 13:23 Blood Culture (Wb) - Left Forearm Bacteria Detection (PCR) - Final Staphylococcus aureus 07/26/21 13:23 Blood Culture (Wb) - Left Forearm Blood Culture - Preliminary 07/26/21 14:05 Aspirate - Other Gram Stain - Final 07/26/21 14:05 Aspirate - Other Wound Culture - Preliminary Staphylococcus aureus Weight used for dosin kg Estimated Creatinine Clearance: 60 Goal Trough: 15-20 mcg/mL Pharmacy Plan for Drug Dosing: Vancomycin trough level was surprisingly low at 5.4. Not clearly explainable from renal function. No significant apparent changes. Sensitivity result is still pending. Will increase dose to 1250mg q12h and draw another trough prior to 4th dose of new regimen. Pharmacy Service will continue to monitor and adjust dosing as required. Follow-Up Labs: Trough Vancomycin Labs to be done on [date and time ordered]: 07/29/21 @2200
[2021-07-28 02:35] VITALS: BP 109/67; PULSE 50; RESP 16; TEMP 36.8; O2SAT 97
[2021-07-28 03:43] VITALS: RESP 16
[2021-07-28] MEDS: Piperacil/Tazobactam 3.375 GM Q8 PREMIX IV (06:11)
[2021-07-28 06:26] LABS: Bedside Glucose 121 mg/dL (70-110)
[2021-07-28 06:56] LABS: Absolute Lymphocyte Count 0.67 X10^3/uL (0.83-4.51); Absolute Neutrophil Count 3.9 X10^3/uL (2.0-7.7); Basophil# 0.02 X10^3/uL; Basophil% 0.4 % (0-1); Eosinophil# 0.02 X10^3/uL; Eosinophils% 0.4 % (0-5); Hematocrit 35.9 % (40-54); Hemoglobin 11.7 g/dL (13.0-16.5); Lymphocyte # 0.67 X10^3/ul (0.83-4.51); Lymphocyte % 13.4 % (19-41); Mean Corp Hgb Conc 32.6 g/dL (32-36); Mean Corpuscular Hgb 31.4 pg (27.0-32.0); Mean Corpuscular Volume 96.2 fL (80-94); Mean Platelet Vol. 9.5 fl (6.2-12.0); Monocyte# 0.36 X10^3/uL; Monocyte% 7.2 % (0-10); NRBC Flagged by Analyzer 0 % (0-5); Neutrophil # 3.85 X10^3/uL (2.7-7.7); Platelet Count 133 K/mm3 (150-450); RBC Distribution Width SD 49.1 fl (35.1-43.9); Red Blood Count 3.73 M/mm3 (4.6-6.2)
[2021-07-28 07:11] VITALS: O2SAT 97
[2021-07-28 07:21] LABS: ALB/GLOB Ratio 0.6 RATIO (0.9-2.4); AST(SGOT) 20 U/L (15-37); Alanine Aminotransfer ALT/SGPT 34 U/L (16-61); Albumin, Serum 2.1 g/dL (3.2-5.0); Alkaline Phosphatase 70 U/L (45-117); Anion Gap 7 (5-15); BUN 15 mg/dL (7-18); BUN/Creat Ratio 22.7 RATIO (10-20); Calcium,Total 8.5 mg/dL (8.5-10.1); Chloride 101 mmol/L (98-107); Creatinine, Serum 0.66 mg/dL (0.70-1.30); EST Glomerular Filtration Rate 125 mL/min (>60); Est Glom Filt Rate - Afr Amer 151 mL/min (>60); Estimated Creatinine Clearance 60.29 ml/min; Globulin 3.8 g/dL (2.2-4.2); Glucose 122 mg/dL (74-106); Potassium 3.6 mmol/L (3.5-5.1); Protein, Total 5.9 g/dL (6.4-8.2); Sodium Level 135 mmol/L (136-145)
--- NOTE | 2021-07-28 08:39 | PN.HOSP_ITS ---
Subjective Subjective Patient is a 75-year-old gentleman with history of stage IV prostate CA admitted with chest wall abscess Objective Data Objective Data Vital Signs: Vital Signs Temp Pulse Resp BP Pulse Ox 98.2 F 50 L 16 109/67 97 07/28/21 02:35 07/28/21 02:35 07/28/21 03:43 07/28/21 02:35 07/28/21 07:11 Oxygen Flow Rate (L/min) 2 Oxygen Delivery Method Nasal Cannula Weight: 65.771 kg Body Mass Index (BMI) 19.6 Intake & Output: Intake and Output for Last 24 Hours 07/26/21 07/27/21 07/28/21 23:59 23:59 23:59 Intake Total 562.5 / 562.5 2076.25 / 2076.25 200 / 200 Output Total 100 / 100 1950 / 1950 500 / 500 Balance 462.5 / 462.5 126.25 / 126.25 -300 / -300 Medical Nutrition Assessment Dietitian: Malnutrition Criteria Met Start: 07/27/21 12:02 Freq: Status: Active Protocol: Document 07/27/21 12:02 ARAM (Rec: 07/27/21 12:02 [facility] [id number]) Nutrition Malnutrition Evidence of Malnutrition Exists Yes Malnutrition (severe): Acute Illness/Injury Evidenced By Suboptimal Energy Intake ( Severe),Weight Loss (Severe) Clinical Problem Acute Disease or Injury Related Malnutrition Etiology related to cancer w/ mets and covid causing pt to not have much of an appetite, therefore not consuming adequate nutrition to meet est nutritional needs Signs/Symptoms as evidenced by 9.6% wt loss and <75% po intake x past 2-3 wks per pt. Status Active Problem Recommendation Dietitian Recommendations/Changes Will continue regular / vegetarian diet as ordered Will provide 120 ml ensure enlive w/ meals - pt agreeable to ONS Rec appetite stimulant if po intake fails to improve Lab / Micro Data Result Diagrams: 07/28/21 06:00 07/28/21 06:00 Labs: Laboratory Results - last 24 hr 07/27/21 05:34: Hemoglobin A1c 5.8 H 07/27/21 07:39: POC Glucose 79 07/27/21 11:07: POC Glucose 105 07/27/21 15:47: POC Glucose 198 H 07/27/21 20:43: POC Glucose 199 H 07/27/21 22:00: Vancomycin Trough 5.4 07/28/21 06:00: WBC 5.0, RBC 3.73 L, Hgb 11.7 L, Hct 35.9 L, MCV 96.2 H, MCH 31.4, MCHC 32.6, RDW Std Deviation 49.1 H, RDW Coeff of Kendra 14.0, Plt Count 133 L, MPV 9.5, Immature Gran % (Auto) 1.600 H, Neut % (Auto) 77.0 H, Lymph % (Auto) 13.4 L, [place] % (Auto) 7.2, Eos % (Auto) 0.4, Baso % (Auto) 0.4, Absolute Neuts (auto) 3.9, Absolute Lymphs (auto) 0.67 L, Nucleated RBC % 0 07/28/21 06:00: Sodium 135 L, Potassium 3.6, Chloride 101, Carbon Dioxide 27.0, Anion Gap 7, BUN 15, Creatinine 0.66 L, Estim Creat Clear Calc 60.29, Est GFR (MDRD) Af Amer 151, Est GFR (MDRD) Non-Af 125, BUN/Creatinine Ratio 22.7 H, Glucose 122 H, Calcium 8.5, Total Bilirubin 0.60, AST 20, ALT 34, Alkaline Phosphatase 70, Total Protein 5.9 L, Albumin 2.1 L, Globulin 3.8, Albumin/Globu anshul Ratio 0.6 L 07/28/21 06:15: POC Glucose 121 H Micro: Microbiology 07/26/21 13:23 Blood Culture (Wb) - Left Forearm Bacteria Detection (PCR) - Final Staphylococcus aureus 07/26/21 13:23 Blood Culture (Wb) - Left Forearm Blood Culture - Preliminary Staphylococcus aureus 07/26/21 14:05 Aspirate - Other Gram Stain - Final 07/26/21 14:05 Aspirate - Other Wound Culture - Final Staphylococcus aureus Physical Exam Narrative GENERAL: cooperative HEENT: Atraumatic; EYES; Anicteric, Normal Conjunctiva NECK; supple, normal thyroid, RESPIRATORY: Diminished to auscultation CARDIOVASCULAR: Regular S1 S2, GI: soft, normoactive bowel sounds, : No Renal angle tenderness; EXTREMITIES: No edema, no clubbing, MUSCULOSKELETAL: no muscle waisting NEURO: Awake; no lateralizing signs. SKIN: No Rash PSYCH; Flat affect Assessment & Plan Assessment/Plan (1) Abscess of chest wall: (2) Bacteremia: PLAN: Patient is a 75-year-old gentleman with history of stage IV prostate CA admitted with chest wall abscess 1. Chest wall abscess ?Secondary to port infection. Patient underwent removal of his port on 07/27/[address] Linton. Cultures grew staph aureus methicillin sensitive. Patient has been managed with Zosyn and vancomycin vancomycin discontinued starting today. Consult also placed to ID will defer to ID to determine the duration of treatment 2. MSSA bacteremia ?Secondary to above 3. Recent COVID-19 infection ?Managed with dexamethasone patient current time is scheduled to and as of 07/28/2021 4. Diabetes mellitus type II -patient's oral hypoglycemics held. Placed on long acting insulin, Accu-Cheks a.c. and at bedtime and covered with sliding scale insulin 5. 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 Patient is on Keppra did continue. Patient is also on tamsulosin 6. Severe protein calorie malnutrition ?As evidenced by some optimal energy intake and severe weight loss. This is secondary to patient underlying prostate CA with mets. Consult was placed to dietitian recommendations reviewed and followed 7. Dyslipidemia -Patient is on statin therapy, continued at home dose 8. DVT prophylaxis ?Enoxaparin Charges/Coding Visit Charges Inpatient E&M: 16784 Subs Hosp L2
[2021-07-28 09:16] VITALS: BP 105/67; PULSE 77; RESP 18; TEMP 36.4; O2SAT 95
[2021-07-28] MEDS: Memantine Hydrochloride 10 MG Tablet PO ×2 (09:25→21:06)
[2021-07-28] MEDS: levETIRAcetam 500 MG Tablet PO ×2 (09:25→21:06)
[2021-07-28] MEDS: Tamsulosin HCl 0.4 MG Capsule PO (09:25)
[2021-07-28] MEDS: dexAMETHasone 4 MG Tablet 6 MG PO (09:26)
[2021-07-28] MEDS: metFORMIN HCl 500 MG Tablet PO ×2 (09:26→16:18)
[2021-07-28] MEDS: 0.9% Saline Lock 10 ML Syringe IV (10:38)
[2021-07-28 12:01] LABS: Bedside Glucose 146 mg/dL (70-110)
--- NOTE | 2021-07-28 13:10 | ECHOD_ITS ---
Reason For Study: Murmur Procedure This was a 2D Doppler, Color Flow transthoracic echocardiogram. Technically difficult study due to patients body habitus, probable pectus excavatum. Exam performed portable in patient room. The exam was abbreviated due to the COVID 19 protocol. Left Ventricle Normal LV size. Left ventricular systolic function is normal. The estimated ejection fraction is 60 %. No regional wall motion abnormalities noted. Right Ventricle Normal RV size. Atria Normal left atrium. Great Vessels Calcified aortic root. The pulmonary artery is normal size. Pericardium/Pleural No pericardial effusion. MMode/2D Measurements & Calculations LVIDd: 4.0 cm IVSd: 0.86 cm LVIDs: 2.2 cm LVPWd: 0.84 cm FS: 45.1 % Doppler Measurements & Calculations PA V2 max: 96.3 cm/sec ECHO/Echo Complete Interpretation Summary Normal LV size. Left ventricular systolic function is normal. The estimated ejection fraction is 60 %. Ordering Physician: Jong Cunningham Referring Physician: Ramírez Klein Performed By: Srinivas Hines RCS
--- NOTE | 2021-07-28 13:10 | PCM.CONS.GEN ---
Assessment & Plan Assessment/Plan (1) Bacteremia: PLAN: MSSA bacteremia from R chest port. Port now removed 07/27. Will check TTE and repeat bcx. Narrow abx to cefazolin. In covid recovery, on RA, isolate until 07/31. Recommended vaccine for covid, but he is skeptical. Will follow, thank you (2) COVID-19: (3) Brain metastases: (4) Infected venous access port: QUALIFIERS: Encounter type: initial encounter Qualified Code(s): T80.219A - Unspecified infection due to central venous catheter, initial encounter HPI Consult Data Date of Consult: 07/28/21 HPI Narrative HPI Narrative: MILENA CHARLES, is a 75 M who presented with covid, hypoxia since 07/11. Unvaccinated. Also reports one week of R chest port pain/redness/swelling. No fever or chills. Had purulence at the site. No other joint pain. Admitted 07/26, taken to OR 07/27 for port removal by Dr. Linton. On vanc/zosyn, feeling better. Full ROS performed and neg except as noted above. [facility] Medical History Brain metastasis On home oxygen therapy Prostate cancer Seizures Home Medications metformin 500 mg tablet 500 mg PO BID 07/04/21 [History Last Taken Unknown] tamsulosin 0.4 mg capsule 0.4 mg PO DAILY 07/04/21 [History Last Taken Unknown] memantine 5 mg tablet 5 mg PO BID #105 tab 07/09/21 [Rx Last Taken Unknown] dexamethasone 6 mg PO DAILY #7 tab 07/19/21 [Rx Last Taken Unknown] levetiracetam [Keppra XR] 1,000 mg PO DAILY 30 Days #60 tab 07/23/21 [Rx Last Taken Unknown] atorvastatin 40 mg PO QHS 07/26/21 [History Last Taken Unknown] Allergy/AdvReac Type Severity Reaction Status Date / Time No Known Allergies Allergy Verified 07/26/21 11:08 Family History Mother Breast cancer Father Cancer lymphoma Surgical History Hx of tonsillectomy Social History adopted: No household members: spouse current occupational status: retired Smoking Status: Never smoker alcohol intake: never substance use type: does not use Physical Exam Const alert, oriented x3 and no apparent distress General Appearance: cooperative Exam Limitations: no limitations HEENT normocephalic and head/scalp atraumatic Eyes PERRL and EOMs intact bilaterally Neck supple and No nodes Resp clear to auscultation bilaterally Auscultation: diminished lung sounds Cardio regular rate and regular rhythm GI normal to inspection, nondistended, normoactive bowel sounds Extremity no clubbing, cyanosis or edema Skin no rashes or lesions noted Skin Narrative: no splinter hemorrhages on hands or feet Neuro CN's II-XII intact bilaterally Medical Records Data Medical Nutrition Assessment Dietitian: Malnutrition Criteria Met Start: 07/27/21 12:02 Freq: Status: Active Protocol: Document 07/27/21 12:02 [facility] (Rec: 07/27/21 12:02 [facility] [id number]) Nutrition Malnutrition Evidence of Malnutrition Exists Yes Malnutrition (severe): Acute Illness/Injury Evidenced By Suboptimal Energy Intake ( Severe),Weight Loss (Severe) Clinical Problem Acute Disease or Injury Related Malnutrition Etiology related to cancer w/ mets and covid causing pt to not have much of an appetite, therefore not consuming adequate nutrition to meet est nutritional needs Signs/Symptoms as evidenced by 9.6% wt loss and <75% po intake x past 2-3 wks per pt. Status Active Problem Recommendation Dietitian Recommendations/Changes Will continue regular / vegetarian diet as ordered Will provide 120 ml ensure enlive w/ meals - pt agreeable to ONS Rec appetite stimulant if po intake fails to improve Lab / Micro Data Result Diagrams: 07/28/21 06:00 07/28/21 06:00 Labs: Laboratory Results - last 24 hr 07/27/21 15:47: POC Glucose 198 H 07/27/21 20:43: POC Glucose 199 H 07/27/21 22:00: Vancomycin Trough 5.4 07/28/21 06:00: WBC 5.0, RBC 3.73 L, Hgb 11.7 L, Hct 35.9 L, MCV 96.2 H, MCH 31.4, MCHC 32.6, RDW Std Deviation 49.1 H, RDW Coeff of Kendra 14.0, Plt Count 133 L, MPV 9.5, Immature Gran % (Auto) 1.600 H, Neut % (Auto) 77.0 H, Lymph % (Auto) 13.4 L, [place] % (Auto) 7.2, Eos % (Auto) 0.4, Baso % (Auto) 0.4, Absolute Neuts (auto) 3.9, Absolute Lymphs (auto) 0.67 L, Nucleated RBC % 0 07/28/21 06:00: Sodium 135 L, Potassium 3.6, Chloride 101, Carbon Dioxide 27.0, Anion Gap 7, BUN 15, Creatinine 0.66 L, Estim Creat Clear Calc 60.29, Est GFR (MDRD) Af Amer 151, Est GFR (MDRD) Non-Af 125, BUN/Creatinine Ratio 22.7 H, Glucose 122 H, Calcium 8.5, Total Bilirubin 0.60, AST 20, ALT 34, Alkaline Phosphatase 70, Total Protein 5.9 L, Albumin 2.1 L, Globulin 3.8, Albumin/Globulin Ratio 0.6 L 07/28/21 06:15: POC Glucose 121 H 07/28/21 11:30: POC Glucose 146 H Micro: Microbiology 07/26/21 12:45 Blood Culture (Wb) - Line Draw Blood Culture - Preliminary No growth in 48 hours. 07/26/21 13:23 Blood Culture (Wb) - Left Forearm Bacteria Detection (PCR) - Final Staphylococcus aureus 07/26/21 13:23 Blood Culture (Wb) - Left Forearm Blood Culture - Preliminary Staphylococcus aureus 07/26/21 14:05 Aspirate - Other Gram Stain - Final 07/26/21 14:05 Aspirate - Other Wound Culture - Final Staphylococcus aureus
--- NOTE | 2021-07-28 13:15 | CASEMGMT ---
RN NADEEN LEAD AUDITOR NADEEN placed call to pt's room for initial transition planning/care coordination assessment. FREDDY SENIOR introduced self and role at [facility]. Pt voices understanding and consents to assessment at this time. Pt is A/O at this time and answers all questions appropriately. Care providers, pharmacy, and demographics verified/updated at this time. Per H/P tested + COVID 07/11. Tested again @ [facility] 07/15 and was +. PCP: Dr Martell Klein in [place] Specialists: Dr Bui-radiation oncology Preferred Pharmacy: [facility] Retail Insurance: [place], [employer] [facility] Prescription Benefit: Yes Living Will/HPOA: Pt does not currently have LW/HCPOA. States is currently working on having them done. Pt made aware documents do not transfer across state lines. Pt interested in having them completed while @ [facility]. SW made aware. LNOK: , Kristal Yousif--she is currently hospitalized in [place] for COVID. Pt states they anticipate she will be ready for discharge home in 1-2 days. Living Arrangements: Pt and his live in [place], but have been staying w/his sis-in-law (Jacoby Bazzi) and her in [place]. Both Jacoby and her are TR[employer] INS[employer]'s. Pt and plan to discharge back to Jacoby and her 's home until at least mid-Aug. Their home is a one-story home w/3-4 steps to enter. Pt and have separate bedroom to stay in. Jacoby and her both work but pt states b/w the 2 of them they will be able to help w/wound care/dressing changes. Pt's usually manages pt's meds and appts. Pt independent w/ADL's. Transportation: Pt states drives self and states no transportation concerns at this time. also drives. Jacoby and drive. DME: States has the following DME: functioning glucometer w/supplies, cane, pulse ox, O2 @ 2l/m through [employer]--has concentrator and portability. Family can bring in portable tank to go home on @ d/c. Pt states no need for further DME at this time. HHC/SNF: No hx of either. Denies need for HHC. Pt wishes to return home and states has no concerns with going home at time of discharge. CM to follow for any increase in home oxygen needs and any further discharge planning/needs. Pt voices no further concerns/needs at this time. Advised pt to ask for CM if any further questions/concerns/needs arise. Voices understanding. PLAN: Home w/family support and discharge plans in place. Family able to do wound care/dressing changes. Chris LOPEZN RN CM
[2021-07-28 14:45] VITALS: BP 124/70; PULSE 65; RESP 16; TEMP 37; O2SAT 97
[2021-07-28] MEDS: Cefazolin 2 GM in 0.9% Normal Saline 100 ML IV ×2 (14:47→21:06)
[2021-07-28 16:55] LABS: Bedside Glucose 173 mg/dL (70-110)
[2021-07-28 21:04] VITALS: BP 127/80; PULSE 63; RESP 18; TEMP 37.1; O2SAT 97
[2021-07-28] MEDS: Atorvastatin Calcium 40 MG Tablet PO (21:06)
[2021-07-28 22:21] LABS: Bedside Glucose 149 mg/dL (70-110)
[2021-07-29 02:50] VITALS: BP 116/70; PULSE 55; RESP 18; TEMP 36.2; O2SAT 97
[2021-07-29] MEDS: Cefazolin 2 GM in 0.9% Normal Saline 100 ML IV (06:19)
[2021-07-29 06:36] LABS: Bedside Glucose 112 mg/dL (70-110)
[2021-07-29 07:27] VITALS: O2SAT 95
--- NOTE | 2021-07-29 07:46 | PCM.PN.HOSP ---
Subjective Subjective Patient seen no significant event overnight. Patient underwent TTE as recommended by ID the day prior, there was no mention of any vegetations. Repeat blood cultures ordered results pending Objective Data Objective Data Vital Signs: Vital Signs Temp Pulse Resp BP Pulse Ox 97.2 F L 55 L 18 116/70 95 07/29/21 02:50 07/29/21 02:50 07/29/21 02:50 07/29/21 02:50 07/29/21 07:27 Oxygen Flow Rate (L/min) 2 Oxygen Delivery Method Nasal Cannula Weight: 65.771 kg Body Mass Index (BMI) 19.6 Intake & Output: Intake and Output for Last 24 Hours 07/27/21 07/28/21 07/29/21 23:59 23:59 23:59 Intake Total 2076.25 / 6.25 1862.25 / 2062.25 400 / 400 Output Total 1949 / 1949 1700 / 0 350 / 350 Balance 126.25 / 126.25 162.25 / 12.25 50 / 50 Medical Nutrition Assessment Dietitian: Malnutrition Criteria Met Start: 07/27/21 12:02 Freq: Status: Active Protocol: Document 07/27/21 12:02 [facility] (Rec: 07/27/21 12:02 [facility] [id number]) Nutrition Malnutrition Evidence of Malnutrition Exists Yes Malnutrition (severe): Acute Illness/Injury Evidenced By Suboptimal Energy Intake ( Severe),Weight Loss (Severe) Clinical Problem Acute Disease or Injury Related Malnutrition Etiology related to cancer w/ mets and covid causing pt to not have much of an appetite, therefore not consuming adequate nutrition to meet est nutritional needs Signs/Symptoms as evidenced by 9.6% wt loss and <75% po intake x past 2-3 wks per pt. Status Active Problem Recommendation Dietitian Recommendations/Changes Will continue regular / vegetarian diet as ordered Will provide 120 ml ensure enlive w/ meals - pt agreeable to ONS Rec appetite stimulant if po intake fails to improve Lab / Micro Data Result Diagrams: 07/29/21 06:50 07/29/21 06:50 Labs: Laboratory Results - last 24 hr 07/28/21 11:30: POC Glucose 146 H 07/28/21 16:10: POC Glucose 173 H 07/28/21 21:03: POC Glucose 149 H 07/29/21 06:18: POC Glucose 112 H Micro: Microbiology 07/26/21 12:45 Blood Culture (Wb) - Line Draw Blood Culture - Preliminary No growth in 48 hours. 07/26/21 13:23 Blood Culture (Wb) - Left Forearm Bacteria Detection (PCR) - Final Staphylococcus aureus 07/26/21 13:23 Blood Culture (Wb) - Left Forearm Blood Culture - Preliminary Staphylococcus aureus 07/26/21 14:05 Aspirate - Other Gram Stain - Final 07/26/21 14:05 Aspirate - Other Wound Culture - Final Staphylococcus aureus Radiography Diagnostic Testing: Radiology Impression Echocardiogram 07/28/21 13:10 Interpretation Summary Normal LV size. Left ventricular systolic function is normal. The estimated ejection fraction is 60 %. Ordering Physician: Jong Cunningham Referring Physician: Ramírez Klein Performed By: Srinivas Hines RCS Physical Exam Narrative GENERAL: cooperative HEENT: Atraumatic; EYES; Anicteric, Normal Conjunctiva NECK; supple, normal thyroid, RESPIRATORY: Diminished to auscultation CARDIOVASCULAR: Regular S1 S2, GI: soft, normoactive bowel sounds, : No Renal angle tenderness; EXTREMITIES: No edema, no clubbing, MUSCULOSKELETAL: no muscle waisting NEURO: Awake; no lateralizing signs. SKIN: No Rash PSYCH; Flat affect Assessment & Plan Assessment/Plan (1) Abscess of chest wall: (2) Bacteremia: PLAN: Patient is a 75-year-old gentleman with history of stage IV prostate CA admitted with chest wall abscess 1. Chest wall abscess ?Secondary to port infection. Patient underwent removal of his port on 07/27/[address] Linton. Cultures grew staph aureus methicillin sensitive. Patient has been managed with Zosyn and vancomycin,vancomycin discontinued starting today. Consult also placed to ID will defer to ID to determine the duration of treatment 2. MSSA bacteremia ?Secondary to above -07/29/2021; Patient seen no significant event overnight. Patient underwent TTE as recommended by ID the day prior, there was no mention of any vegetations. Repeat blood cultures ordered results pending 3. Recent COVID-19 infection ?Managed with dexamethasone patient current time is scheduled to and as of 07/28/2021 4. Diabetes mellitus type II -patient's oral hypoglycemics held. Placed on long acting insulin, Accu-Cheks a.c. and at bedtime and covered with sliding scale insulin 5. 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 Patient is on Keppra did continue. Patient is also on tamsulosin 6. Severe protein calorie malnutrition ?As evidenced by some optimal energy intake and severe weight loss. This is secondary to patient underlying prostate CA with mets. Consult was placed to dietitian recommendations reviewed and followed 7. Dyslipidemia -Patient is on statin therapy, continued at home dose 8. DVT prophylaxis ?Enoxaparin Charges/Coding Visit Charges Inpatient E&M: 06658 Subs Hosp L2
[2021-07-29 08:00] LABS: Absolute Lymphocyte Count 1.03 X10^3/uL (0.83-4.51); Absolute Neutrophil Count 5.1 X10^3/uL (2.0-7.7); Basophil# 0.03 X10^3/uL; Basophil% 0.4 % (0-1); Eosinophil# 0.03 X10^3/uL; Eosinophils% 0.4 % (0-5); Hematocrit 35.9 % (40-54); Lymphocyte # 1.03 X10^3/ul (0.83-4.51); Lymphocyte % 15.2 % (19-41); Mean Corp Hgb Conc 33.4 g/dL (32-36); Mean Corpuscular Hgb 32.2 pg (27.0-32.0); Mean Corpuscular Volume 96.2 fL (80-94); Mean Platelet Vol. 9.7 fl (6.2-12.0); Monocyte# 0.48 X10^3/uL; Monocyte% 7.1 % (0-10); NRBC Flagged by Analyzer 0 % (0-5); Neutrophil # 5.08 X10^3/uL (2.7-7.7); Neutrophil % 75.1 % (47-70); Platelet Count 137 K/mm3 (150-450); RBC Distribution Width SD 49.3 fl (35.1-43.9); Red Blood Count 3.73 M/mm3 (4.6-6.2); White Blood Count 6.8 K/mm3 (4.4-11.0)
[2021-07-29 08:35] LABS: Anion Gap 7 (5-15); BUN 17 mg/dL (7-18); Calcium,Total 8.6 mg/dL (8.5-10.1); Chloride 102 mmol/L (98-107); Creatinine, Serum 0.61 mg/dL (0.70-1.30); EST Glomerular Filtration Rate 138 mL/min (>60); Est Glom Filt Rate - Afr Amer 167 mL/min (>60); Estimated Creatinine Clearance 60.29 ml/min; Glucose 110 mg/dL (74-106); Magnesium 2.1 mg/dL (1.6-2.6); Potassium 3.8 mmol/L (3.5-5.1); Sodium Level 137 mmol/L (136-145)
[2021-07-29 09:17] VITALS: BP 105/67; PULSE 64; RESP 18; TEMP 36.6; O2SAT 95
[2021-07-29] MEDS: metFORMIN HCl 500 MG Tablet PO ×2 (09:34→17:20)
[2021-07-29] MEDS: dexAMETHasone 4 MG Tablet 6 MG PO (09:35)
[2021-07-29] MEDS: Tamsulosin HCl 0.4 MG Capsule PO (09:35)
[2021-07-29] MEDS: Memantine Hydrochloride 10 MG Tablet PO ×2 (09:36→20:40)
[2021-07-29] MEDS: levETIRAcetam 500 MG Tablet PO ×2 (09:36→20:40)
--- NOTE | 2021-07-29 10:44 | CASEMGMT ---
Social Work Note SW aware of referral for Advanced Directives. SW will meet with pt as time allows to complete documents. Bonny Wynn HOB MACHINE OPERATOR, SUSPENSION CORD TIER
[2021-07-29 13:26] LABS: Bedside Glucose 151 mg/dL (70-110)
--- NOTE | 2021-07-29 14:42 | CASEMGMT ---
Social Work Note SW placed a call to pt to determine if he wants to complete HCPOA/LW. Pt states he doesn't want to complete them today, asked for SW to follow up with pt tomorrow. Bonny Wynn ACROBATIC RIGGER, BUSINESS ANALYSIS CONSULTANT
[2021-07-29 14:47] VITALS: BP 97/57; PULSE 67; RESP 16; TEMP 36.4; O2SAT 96
[2021-07-29 17:20] LABS: Bedside Glucose 148 mg/dL (70-110)
[2021-07-29 20:29] VITALS: BP 147/86; PULSE 62; RESP 18; TEMP 36.6; O2SAT 96
[2021-07-29 21:55] LABS: Bedside Glucose 150 mg/dL (70-110)
[2021-07-30 02:08] VITALS: BP 108/70; PULSE 56; RESP 16; TEMP 36.6; O2SAT 95
[2021-07-30 06:36] LABS: Bedside Glucose 101 mg/dL (70-110)
[2021-07-30 07:03] LABS: Absolute Lymphocyte Count 1.07 X10^3/uL (0.83-4.51); Absolute Neutrophil Count 5.6 X10^3/uL (2.0-7.7); Basophil# 0.04 X10^3/uL; Basophil% 0.5 % (0-1); Eosinophil# 0.03 X10^3/uL; Eosinophils% 0.4 % (0-5); Hematocrit 36.3 % (40-54); Lymphocyte # 1.07 X10^3/ul (0.83-4.51); Lymphocyte % 13.9 % (19-41); Mean Corp Hgb Conc 33.1 g/dL (32-36); Mean Corpuscular Hgb 31.9 pg (27.0-32.0); Mean Corpuscular Volume 96.5 fL (80-94); Mean Platelet Vol. 9.7 fl (6.2-12.0); Monocyte% 7.8 % (0-10); NRBC Flagged by Analyzer 0 % (0-5); Neutrophil # 5.63 X10^3/uL (2.7-7.7); Neutrophil % 73.1 % (47-70); Platelet Count 143 K/mm3 (150-450); RBC Distribution Width CV 14.2 % (11.6-14.6); RBC Distribution Width SD 49.9 fl (35.1-43.9); Red Blood Count 3.76 M/mm3 (4.6-6.2); White Blood Count 7.7 K/mm3 (4.4-11.0)
[2021-07-30 07:32] LABS: Anion Gap 7 (5-15); BUN 16 mg/dL (7-18); BUN/Creat Ratio 31.4 RATIO (10-20); Chloride 99 mmol/L (98-107); Creatinine, Serum 0.51 mg/dL (0.70-1.30); EST Glomerular Filtration Rate 169 mL/min (>60); Est Glom Filt Rate - Afr Amer 204 mL/min (>60); Estimated Creatinine Clearance 60.29 ml/min; Glucose 96 mg/dL (74-106); Potassium 3.5 mmol/L (3.5-5.1); Sodium Level 136 mmol/L (136-145)
[2021-07-30 08:08] VITALS: O2SAT 94
[2021-07-30] MEDS: metFORMIN HCl 500 MG Tablet PO (08:30)
--- NOTE | 2021-07-30 09:17 | PN.HOSP_ITS ---
Subjective Subjective Patient admitted with a right-sided chest port abscess which was removed on 07/27. Seen by ID. No fever since 07/26. On IV cefazolin. Objective Data Objective Data Vital Signs: Vital Signs Temp Pulse Resp BP Pulse Ox 97.9 F 56 L 16 108/70 95 07/30/21 02:08 07/30/21 02:08 07/30/21 02:08 07/30/21 02:08 07/30/21 02:08 Oxygen Flow Rate (L/min) 2 Oxygen Delivery Method Room Air Weight: 145 lb Body Mass Index (BMI) 19.6 Intake & Output: Intake and Output for Last 24 Hours 07/28/21 07/29/21 07/30/21 23:59 23:59 23:59 Intake Total 1862.25 / 206.25 980 / 980 400 / 400 Output Total 1700 / 0 350 / 350 Balance 162.25 / . 630 / 630 400 / 400 Medical Nutrition Assessment Dietitian: Malnutrition Criteria Met Start: 07/27/21 12:02 Freq: Status: Active Protocol: Document 07/27/21 12:02 [facility] (Rec: 07/27/21 12:02 [facility] [id number]) Nutrition Malnutrition Evidence of Malnutrition Exists Yes Malnutrition (severe): Acute Illness/Injury Evidenced By Suboptimal Energy Intake ( Severe),Weight Loss (Severe) Clinical Problem Acute Disease or Injury Related Malnutrition Etiology related to cancer w/ mets and covid causing pt to not have much of an appetite, therefore not consuming adequate nutrition to meet est nutritional needs Signs/Symptoms as evidenced by 9.6% wt loss and <75% po intake x past 2-3 wks per pt. Status Active Problem Recommendation Dietitian Recommendations/Changes Will continue regular / vegetarian diet as ordered Will provide 120 ml ensure enlive w/ meals - pt agreeable to ONS Rec appetite stimulant if po intake fails to improve Lab / Micro Data Result Diagrams: 07/30/21 06:04 07/30/21 06:04 Labs: Laboratory Results - last 24 hr 07/29/21 12:16: POC Glucose 151 H 07/29/21 17:11: POC Glucose 148 H 07/29/21 20:26: POC Glucose 150 H 07/30/21 06:04: WBC 7.7, RBC 3.76 L, Hgb 12.0 L, Hct 36.3 L, MCV 96.5 H, MCH 3 1.9, MCHC 33.1, RDW Std Deviation 49.9 H, RDW Coeff of Kendra 14.2, Plt Count 143 L , MPV 9.7, Immature Gran % (Auto) 4.300 H, Neut % (Auto) 73.1 H, Lymph % (Auto) 13.9 L, [place] % (Auto) 7.8, Eos % (Auto) 0.4, Baso % (Auto) 0.5, Absolute Neuts (auto) 5.6, Absolute Lymphs (auto) 1.07, Nucleated RBC % 0 07/30/21 06:04: Sodium 136, Potassium 3.5, Chloride 99, Carbon Dioxide 30.0, Anion Gap 7, BUN 16, Creatinine 0.51 L, Estim Creat Clear Calc 60.29, Est GFR (MDRD) Af Amer 204, Est GFR (MDRD) Non-Af 169, BUN/Creatinine Ratio 31.4 H, Glucose 96, Calcium 9.0 07/30/21 06:15: POC Glucose 101 Micro: Microbiology 07/27/21 11:25 Blood Culture (Wb) - Left Hand Blood Culture - Preliminary No growth in 48 hours. 07/27/21 11:20 Blood Culture (Wb) - Anticubital Right Blood Culture - Pr eliminary No growth in 48 hours. 07/26/21 13:23 Blood Culture (Wb) - Left Forearm Bacteria Detection (PCR) - Final Staphylococcus aureus 07/26/21 13:23 Blood Culture (Wb) - Left Forearm Blood Culture - Preliminary Staphylococcus aureus 07/26/21 12:45 Blood Culture (Wb) - Line Draw Blood Culture - Preliminary No growth in 48 hours. 07/26/21 14:05 Aspirate - Other Gram Stain - Final 07/26/21 14:05 Aspirate - Other Wound Culture - Final Staphylococcus aureus Physical Exam Narrative General: Alert, Oriented x3, Cooperative HEENT: Atraumatic, PERRLA, EOMI, Normocephalic Oral: No Gingival or Mucosal Lesions/ Ulcerations Neck: Supple, No JVD, Negative Carotid Bruits Chest/lungs: No hematoma over chest port removal. Air entry diminished in bilateral lung bases. No crepitation/rhonchi Cardiovascular: Regular rate, Regular Rhythm, Normal S1, Normal S2, No murmurs Abdomen: Bowel Sounds Present, Soft, Non Tender, Non-Distended : No renal angle tenderness. No suprapubic tenderness. Extremities: No edema, Capillary Refill Less than 3 Seconds Skin: No rashes, No breakdown Musculoskeletal: No Tenderness to Palpation of Joints or Extremities Neurological: Cranial nerves II-XII grossly intact, DTR 2+/4 and Symmetrical, Neuro grossly intact Psych/Mental Status: Flat affect. Assessment & Plan Assessment/Plan (1) Abscess of chest wall: (2) Bacteremia: PLAN: Patient is a 75-year-old gentleman with history of stage IV prostate CA admitted with chest wall abscess 1. Chest wall/port abscess ?Secondary to port infection. Patient underwent removal of his port on 07/27/[address] Linton. Cultures grew staph aureus methicillin sensitive. Initially patient was managed with IV vancomycin and Zosyn but after culture shows MSSA, antibiotic narrowed down to IV cefazolin. Seen by ID. 2. MSSA bacteremia 07/30: Patient seen no significant event overnight. Patient underwent TTE as recommended by ID, there was no mention of any vegetations. Repeat blood cultures from 07/27 shows no growth for 48 hours. 3. Recent COVID-19 infection On room air. Patient does not have significant cough or shortness of breath. Patient is eating and drinking well. On dexamethasone. Isolation until 07/31. 4. Diabetes mellitus type II -patient's oral hypoglycemics held. Placed on long acting insulin, Accu-Cheks a.c. and at bedtime and covered with sliding scale insulin 5. 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 Patient is on Keppra did continue. Patient is also on tamsulosin 6. Severe protein calorie malnutrition ?As evidenced by some optimal energy intake and severe weight loss. This is secondary to patient underlying prostate CA with mets. Consult was placed to dietitian recommendations reviewed and followed 7. Dyslipidemia -Patient is on statin therapy, continued at home dose 8. DVT prophylaxis ?Enoxaparin Charges/Coding Visit Charges Inpatient E&M: 31591 Subs Hosp L2
[2021-07-30] MEDS: Memantine Hydrochloride 10 MG Tablet PO ×2 (10:48→21:19)
[2021-07-30] MEDS: dexAMETHasone 4 MG Tablet 6 MG PO (10:48)
[2021-07-30] MEDS: Tamsulosin HCl 0.4 MG Capsule PO (10:48)
[2021-07-30] MEDS: levETIRAcetam 500 MG Tablet PO ×2 (10:48→21:19)
[2021-07-30 11:27] VITALS: BP 108/69; PULSE 66; RESP 16; TEMP 36.3; O2SAT 93
[2021-07-30 12:56] LABS: Bedside Glucose 91 mg/dL (70-110)
[2021-07-30 14:45] VITALS: BP 109/72; PULSE 69; RESP 16; TEMP 36.6; O2SAT 92
[2021-07-30 17:51] LABS: Bedside Glucose 166 mg/dL (70-110)
[2021-07-30 21:12] VITALS: BP 113/76; PULSE 74; RESP 16; TEMP 36.4; O2SAT 95
[2021-07-30 22:41] LABS: Bedside Glucose 199 mg/dL (70-110)
[2021-07-31 05:00] VITALS: BP 116/78; PULSE 61; RESP 16; TEMP 36.5; O2SAT 96
[2021-07-31 06:31] LABS: Bedside Glucose 129 mg/dL (70-110)
[2021-07-31 07:05] LABS: Absolute Lymphocyte Count 1.01 X10^3/uL (0.83-4.51); Absolute Neutrophil Count 5.7 X10^3/uL (2.0-7.7); Basophil# 0.07 X10^3/uL; Basophil% 0.9 % (0-1); Eosinophil# 0.01 X10^3/uL; Eosinophils% 0.1 % (0-5); Hematocrit 37.1 % (40-54); Hemoglobin 12.2 g/dL (13.0-16.5); Lymphocyte # 1.01 X10^3/ul (0.83-4.51); Lymphocyte % 13.1 % (19-41); Mean Corp Hgb Conc 32.9 g/dL (32-36); Mean Corpuscular Hgb 31.7 pg (27.0-32.0); Mean Corpuscular Volume 96.4 fL (80-94); Mean Platelet Vol. 9.6 fl (6.2-12.0); Monocyte# 0.58 X10^3/uL; Monocyte% 7.5 % (0-10); NRBC Flagged by Analyzer 0 % (0-5); Neutrophil # 5.66 X10^3/uL (2.7-7.7); Neutrophil % 73.5 % (47-70); Platelet Count 157 K/mm3 (150-450); RBC Distribution Width SD 49.2 fl (35.1-43.9); Red Blood Count 3.85 M/mm3 (4.6-6.2); White Blood Count 7.7 K/mm3 (4.4-11.0)
[2021-07-31 07:49] LABS: Anion Gap 7 (5-15); BUN 15 mg/dL (7-18); BUN/Creat Ratio 28.8 RATIO (10-20); Calcium,Total 9.1 mg/dL (8.5-10.1); Chloride 97 mmol/L (98-107); Creatinine, Serum 0.52 mg/dL (0.70-1.30); EST Glomerular Filtration Rate 164 mL/min (>60); Est Glom Filt Rate - Afr Amer 199 mL/min (>60); Estimated Creatinine Clearance 60.29 ml/min; Glucose 113 mg/dL (74-106); Potassium 3.6 mmol/L (3.5-5.1); Sodium Level 135 mmol/L (136-145)
[2021-07-31 08:18] VITALS: BP 112/75; PULSE 58; RESP 18; TEMP 36.4; O2SAT 96
--- NOTE | 2021-07-31 09:39 | PCM.DC ---
Discharge Instructions Diet Discharge Diet: 2000 mg Sodium Diet Activity Discharge Activity: Return to Normal Activity Weight Bearing Status: Weight bearing as tolerated Dressing / Incision Call your doctor if you observe: Fever of 101 or Higher, Coldness, Increased Pain, Numbness or Tingling, Change in Color, Inability to urinate, Inability to have a bowel movement, Shortness of breath, Dizziness, Fainting spells, Swelling in the ankles, Chest pain, Prolonged hiccupping, Increased palpitations (irregular heartbeat), Calf discomfort and Uncontrolled pain Follow Up Care Test Results: Test results from this visit will be discussed in further detail at your follow-up appointment, if applicable. Discharge Plan Admission Admit Date/Time: 07/26/21 15:20 Primary Reason for Your Visit: MSSA Attending Provider: Julian Summers Primary Care Provider: Martell Klein Consulting Providers: Hector Linton ; Jong Cunningham Discharge Orders/Prescriptions Prescriptions: New linezolid 600 mg tablet 600 mg PO BID Qty: 20 RF: 0 Continued metformin 500 mg tablet 500 mg PO BID RF: 0 tamsulosin [Flomax] 0.4 mg capsule 0.4 mg PO DAILY RF: 0 levetiracetam [Keppra XR] 500 mg tablet extended release 24 hr 1,000 mg PO DAILY 30 Days Qty: 60 RF: 0 atorvastatin 40 mg Tablet 40 mg PO QHS RF: 0 memantine 5 mg tablet 5 mg PO BID Qty: 105 RF: 4 Discontinued dexamethasone 6 mg tablet 6 mg PO DAILY Qty: 7 RF: 0 Referrals / Follow Up: Martell Klein MD [Primary Care Provider] - Disposition Disposition (needs filled in before D/C Order can be placed): Home, Self Care
--- NOTE | 2021-07-31 09:39 | PCM.DC.SUM ---
Providers Date of Admission: 07/26/21 Primary Care Physician: Dr. Martell Klein MD Consultations 07/27/21 11:05 Consult: General Surgery Routine Consulting Provider: Hector Linton Reason for Consult: infected port EMERGENT Consult: No Notified: Yes Date Notified: 07/26/21 Time Notified: 18:00 Method of Notification: Verbal 07/27/21 11:08 Consult: Infectious Disease Routine Consulting Provider: Jong Cunningham Reason for Consult: port abscess and bacteremia EMERGENT Consult: No Notified: Yes Date Notified: 07/28/21 Time Notified: 06:04 Method of Notification: Answering Service Reason For Visit: PORT ABSCESS Diagnosis Discharge Diagnosis (1) Abscess of chest wall: Status: Acute Code(s): L02.213 - Cutaneous abscess of chest wall (2) Bacteremia: Status: Acute Code(s): R78.81 - Bacteremia Medications at Discharge Home Medications metformin 500 mg tablet 500 mg PO BID 07/04/21 tamsulosin 0.4 mg capsule 0.4 mg PO DAILY 07/04/21 memantine 5 mg tablet 5 mg PO BID #105 tab 07/09/21 levetiracetam [Keppra XR] 1,000 mg PO DAILY 30 Days #60 tab 07/23/21 atorvastatin 40 mg PO QHS 07/26/21 apixaban [Eliquis] 2.5 mg PO BID #30 tab 07/31/21 linezolid 600 mg PO BID #20 tab 07/31/21 Hospital Course Summary of Care Provided Hospital Course: Patient is a 75-year-old gentleman with history of stage IV prostate CA admitted with chest wall abscess 1. Chest wall/port abscess ?Secondary to port infection. Patient underwent removal of his port on 07/27/[address] Linton. Cultures grew staph aureus methicillin sensitive. Initially patient was managed with IV vancomycin and Zosyn but after culture shows MSSA, antibiotic narrowed down to IV cefazolin. Seen by ID. 2. MSSA bacteremia: Patient seen no significant event overnight. Patient underwent TTE as recommended by ID, there was no mention of any vegetations. Repeat blood cultures from 07/27, 07/28 and 07/29 shows no growth for 48 hours. Discussed with ID and patient is discharged on linezolid 600 mg twice daily for 10 more days. 3. Recent COVID-19 infection On room air. Patient does not have significant cough or shortness of breath. Patient is eating and drinking well. On dexamethasone. Isolation until 07/31. Patient completes dexamethasone. Discharged on 2 weeks of Eliquis 2.5 mg twice daily. Does not have significant cough. 4. Diabetes mellitus type II -patient's oral hypoglycemics held during hospital stay. Placed on long acting insulin, Accu-Cheks a.c. and at bedtime and covered with sliding scale insulin. Metformin resumed 5. 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 Patient is on Keppra did continue. Patient is also on tamsulosin 6. Severe protein calorie malnutrition ?As evidenced by some optimal energy intake and severe weight loss. This is secondary to patient underlying prostate CA with mets. Consult was placed to dietitian recommendations reviewed and followed 7. Dyslipidemia -Patient is on statin therapy, continued at home dose 8. DVT prophylaxis ?Enoxaparin during hospital stay Discharge medication reconciliation done. Discharge follow-up instructions completed. Discharge process discussed with the patient and all questions were answered to patient's satisfaction. Total time spent, exact 35 minutes on discharge meds reconciliation, examination, coordination of care with nurses and ancillary staff, review of imaging and blood test and discussion with the patient on follow-up instructions Physical Exam Narrative Seen and examined. Patient wants to go home. No fever or chills. General: Alert, Oriented x3, Cooperative HEENT: Atraumatic, PERRLA, EOMI, Normocephalic Oral: No Gingival or Mucosal Lesions/ Ulcerations Neck: Supple, No JVD, Negative Carotid Bruits Chest/lungs: No hematoma over chest port removal. Air entry diminished in bilateral lung bases. No crepitation/rhonchi Cardiovascular: Regular rate, Regular Rhythm, Normal S1, Normal S2, No murmurs Abdomen: Bowel Sounds Present, Soft, Non Tender, Non-Distended : No renal angle tenderness. No suprapubic tenderness. Extremities: No edema, Capillary Refill Less than 3 Seconds Skin: No rashes, No breakdown Musculoskeletal: No Tenderness to Palpation of Joints or Extremities Neurological: Cranial nerves II-XII grossly intact, DTR 2+/4 and Symmetrical, Neuro grossly intact Psych/Mental Status: Flat affect. Medical Records Data Medical Nutrition Assessment Dietitian: Malnutrition Criteria Met Start: 07/27/21 12:02 Freq: Status: Active Protocol: Document 07/27/21 12:02 ARAM (Rec: 07/27/21 12:02 [facility] [id number]) Nutrition Malnutrition Evidence of Malnutrition Exists Yes Malnutrition (severe): Acute Illness/Injury Evidenced By Suboptimal Energy Intake ( Severe),Weight Loss (Severe) Clinical Problem Acute Disease or Injury Related Malnutrition Etiology related to cancer w/ mets and covid causing pt to not have much of an appetite, therefore not consuming adequate nutrition to meet est nutritional needs Signs/Symptoms as evidenced by 9.6% wt loss and <75% po intake x past 2-3 wks per pt. Status Active Problem Recommendation Dietitian Recommendations/Changes Will continue regular / vegetarian diet as ordered Will provide 120 ml ensure enlive w/ meals - pt agreeable to ONS Rec appetite stimulant if po intake fails to improve Weight / BMI Weight Weight: 145 lb Body Mass Index (BMI) 19.6 ABG / Lab / Microbiology Data Result Diagrams: 07/31/21 06:05 07/31/21 06:05 Laboratory: Laboratory Results - last 24 hr 07/30/21 12:38: POC Glucose 91 07/30/21 17:25: POC Glucose 166 H 07/30/21 21:18: POC Glucose 199 H 07/31/21 05:46: POC Glucose 129 H 07/31/21 06:05: WBC 7.7, RBC 3.85 L, Hgb 12.2 L, Hct 37.1 L, MCV 96.4 H, MCH 31.7, MCHC 32.9, RDW Std Deviation 49.2 H, RDW Coeff of Kendra 14.0, Plt Count 157, MPV 9.6, Immature Gran % (Auto) 4.900 H, Neut % (Auto) 73.5 H, Lymph % (Auto) 13.1 L, [place] % (Auto) 7.5, Eos % (Auto) 0.1, Baso % (Auto) 0.9, Absolute Neuts (auto) 5.7, Absolute Lymphs (auto) 1.01, Nucleated RBC % 0 07/31/21 06:05: Sodium 135 L, Potassium 3.6, Chloride 97 L, Carbon Dioxide 31.0, Anion Gap 7, BUN 15, Creatinine 0.52 L, Estim Creat Clear Calc 60.29, Est GFR (MDRD) Af Amer 199, Est GFR (MDRD) Non-Af 164, BUN/Creatinine Ratio 28.8 H, Glucose 113 H, Calcium 9.1 Microbiology: Microbiology 07/29/21 09:25 Blood Culture (Wb) - Arm Left Blood Culture - Preliminary No growth in 48 hours. 07/28/21 14:00 Blood Culture (Wb) - Left Forearm Blood Culture - Preliminary No growth in 48 hours. 07/27/21 11:25 Blood Culture (Wb) - Left Hand Blood Culture - Preliminary No growth in 48 hours. 07/27/21 11:20 Blood Culture (Wb) - Anticubital Right Blood Culture - Preliminary No growth in 48 hours. 07/26/21 13:23 Blood Culture (Wb) - Left Forearm Bacteria Detection (PCR) - Final Staphylococcus aureus 07/26/21 13:23 Blood Culture (Wb) - Left Forearm Blood Culture - Preliminary Staphylococcus aureus 07/26/21 12:45 Blood Culture (Wb) - Line Draw Blood Culture - Preliminary No growth in 48 hours. 07/26/21 14:05 Aspirate - Other Gram Stain - Final 07/26/21 14:05 Aspirate - Other Wound Culture - Final Staphylococcus aureus Meaningful Use Info Meaningful Use Diagnoses (Choose all that apply): None applicable Discharge Plan Admission Admit Date/Time: 07/26/21 15:20 Primary Reason for Your Visit: MSSA Attending Provider: Julian Summers Primary Care Provider: Martell Klein Consulting Providers: Hector Linton ; Jong Cunningham Discharge Orders/Prescriptions Prescriptions: New linezolid 600 mg tablet 600 mg PO BID Qty: 20 RF: 0 Eliquis 2.5 mg tablet 2.5 mg PO BID Qty: 30 RF: 0 Continued metformin 500 mg tablet 500 mg PO BID RF: 0 tamsulosin [Flomax] 0.4 mg capsule 0.4 mg PO DAILY RF: 0 levetiracetam [Keppra XR] 500 mg tablet extended release 24 hr 1,000 mg PO DAILY 30 Days Qty: 60 RF: 0 atorvastatin 40 mg Tablet 40 mg PO QHS RF: 0 memantine 5 mg tablet 5 mg PO BID Qty: 105 RF: 4 Discontinued dexamethasone 6 mg tablet 6 mg PO DAILY Qty: 7 RF: 0 Referrals / Follow Up: Martell Klein MD [Primary Care Provider] - Disposition Disposition (needs filled in before D/C Order can be placed): Home, Self Care Charges/Coding Visit Charges Inpatient E&M: 25167 Disch Hosp
[2021-07-31 11:15] LABS: Bedside Glucose 115 mg/dL (70-110)
[2021-07-31] MEDS: Enoxaparin 40 MG/0.4 ML Syringe SC (11:41)
--- NOTE | 2021-07-31 11:42 | CASEMGMT ---
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 TC to [facility], they are requesting a DC order. Received signed order from hospitalist, faxed to [facility] at this time. Original Note: FREDDY SENIOR notified that pt linezolid is approx $2000 and pt does not have rx coverage. TC to [facility] in [place] where a previous rx was filled and they state they used [facility]. TC to [facility], they do not use [facility], the velarde billingsley is $106.63. FREDDY SENIOR in to pt room to discuss with pt and he states he would like rx trf'd to [facility] in [place] and he will use [facility]. TC to Maite at [facility] pharmacy, she will trf script to [facility] in [place]. Provided her with phone number. Pt is aware.
[2021-07-31] MEDS: dexAMETHasone 4 MG Tablet 6 MG PO (11:43)
[2021-07-31] MEDS: Tamsulosin HCl 0.4 MG Capsule PO (11:43)
[2021-07-31] MEDS: levETIRAcetam 500 MG Tablet PO (11:43)
[2021-07-31] MEDS: Memantine Hydrochloride 10 MG Tablet PO (11:44)
[2021-07-31 13:50] VITALS: O2SAT 90; O2SAT 97
[2021-07-31 15:40] VITALS: BP 108/66; PULSE 73; RESP 16; TEMP 36.5; O2SAT 97
== END 2021-07-31 15:36 | disposition home or self-care (01) | DRG 314 ==
LOC: ED 14:38 → MS3 14:56
PROVIDERS: Anesthesiology; Internal Medicine; Emergency Provider Emergency Medicine; PCP Legal Medicine; Visit Provider Internal Medicine
DX: T80.219A Unspecified infection due to central venous catheter, initial encounter (principal); U07.1 COVID-19; E43 Unspecified severe protein-calorie malnutrition; L02.213 Cutaneous abscess of chest wall; C79.31 Secondary malignant neoplasm of brain; R78.81 Bacteremia; Z68.1 Body mass index [BMI] 19.9 or less, adult; C61 Malignant neoplasm of prostate; Y84.8 Other medical procedures as the cause of abnormal reaction of the patient, or of later complication, without mention of misadventure at the time of the procedure; Z28.3 Underimmunization status; E11.9 Type 2 diabetes mellitus without complications; D69.6 Thrombocytopenia, unspecified; B95.61 Methicillin susceptible Staphylococcus aureus infection as the cause of diseases classified elsewhere; E78.5 Hyperlipidemia, unspecified; Z99.81 Dependence on supplemental oxygen; Z79.01 Long term (current) use of anticoagulants; Z80.3 Family history of malignant neoplasm of breast
CPT/HCPCS: 36415; 71045; 80048; 80053; 80202; 82962; 83036; 83605; 83735; 85025; 85610; 85730; 87040; 87070; 87077; 87149; 87186; 87205; 93005; 93306; 97802; 99285; J7050; A4216